=== PATIENT | female | born 1935 | race Caucasian/White ===

== ENCOUNTER 2017-10-07 10:39 | Day surgery (SDC) | payer MEDICARE, SELFPAY ==
[2017-10-07] VITALS (7 sets, daily range): BP systolic 141–163; BP diastolic 71–82; PULSE 65–76; RESP 18; TEMP 36.4–36.7; O2SAT 94–95; BMI 35.6
--- NOTE | 2017-10-07 | COLBX_PTH ---
PATIENT: LIBIA ANTON LOC: EN U#:[id number] AGE/SX: 82/F ROOM: RE10/07/[address]: Dr. Lala Deutsch MD : 1935 BED: DIS: 10/07/2017 SPEC #: [id number] RECD: 10/07/17 14:18 STATUS: AMANUEL HERNANDEZ #: [id number] AMY: 10/07/17 00:[address]: Lala Deutsch DEPT: SURGICAL PATHOLOGY RECD BY: Merrill Mack ENTERED: 10/07/17 14:18 SP TYPE: COLON BX OTHR DR: Dr. Ra Knight MD Tissues: Right colon Procedures: Surgery Specimen Level IV HEADER OPERATION: Colonoscopy PRE-OP DIAGNOSIS: Screening, personal history colonic polyps TISSUE SUBMITTED: Right colon polyp MICROSCOPIC DIAGNOSIS Right colon polyp, biopsy: Fragments of colonic mucosa with cautery artifacts, no pathologic diagnosis. Fragments of fecal material. SJ:isabella 10/08/17 MICROSCOPIC DESCRIPTION Slides are reviewed. GROSS DESCRIPTION Received in fixative is one container labeled with the patient's name and designated right colon polyp. The specimen consists of multiple irregular fragments of light rios soft tissue that in aggregate measure 0.6 x 0.2 x 0.1 cm. The specimen is totally submitted in one cassette. / SJ:rg 10/07/17 TC:4 CPT: 22965
--- NOTE | 2017-10-08 12:42 | PCM.OPRPT ---
Report of Operation Date of Procedure: 10/07/17 Pre-Operative Diagnosis: screening for colon cancer Post-Operative Diagnosis: same, right colon polyp Surgery/Procedure Performed:: colonoscopy with polypectomy with snare device Description of Surgical Findings:: right colon polyp, removed completely with hot loop snare device Type of Anesthesia:: MAC Anesthesiologist: Zaynab Del Valle Specimen's removed: right colon polyp Estimated Blood Loss (mL): minimal Fluids Replaced: see anesthesia note Description of Procedure: After informed consent was given, the patient was brought to the endoscopy suite and placed in the supine position. Appropriate time out protocol was followed. Appropriate cardiac, blood pressure, and pulse oximetry monitoring was placed. After stable vital signs were noted, the patient was given intravenous conscious sedation. The patient was then placed in the left lateral decubitis position. The colonoscope was lubricated and carefully inserted into the patients anus. It was then advanced into the rectum, then into the sigmoid colon, then into the left descending colon, past the splenic flexure, into the transverse colon, past the hepatic flexure, then down into the right descending colon and into the cecum. The cecum was identified by: transillumination, confluence of the tenae coli, identification of the ileocecal valve and appendiceal orifice, and external pressure with indentation. There was a small, < 1 cm polypoid lesion noted in the right colon, it was completely removed with a hot snare cautery device. The colonoscope was then slowly retracted back and the entire colonic mucosa was examined. There was no evidence of extrinsic compression and no inflammatory changes were noted. The colon cleansing preparation was adequate, there was still retained fecal material that require lavage and aspiration and time to clear the colon marvin. No intraluminal obstructing lesions, no strictures, and no ulcers were noted. Retroflex view in the rectum revealed no lesions in the rectal vault. The colonoscope was removed intact. Patient tolerated procedure well. RECOMMENDATIONS: pending pathology review, probable surveillance colonoscopy in 5 years - Complications none noted
--- NOTE | 2017-10-08 12:45 | OP.PCM_ITS ---
Report of Operation Date of Procedure: 10/07/17 Pre-Operative Diagnosis: screening for colon cancer Post-Operative Diagnosis: same, right colon polyp Surgery/Procedure Performed:: colonoscopy with polypectomy with snare device Description of Surgical Findings:: right colon polyp, removed completely with hot loop snare device Type of Anesthesia:: MAC Anesthesiologist: Zaynab Del Valle Specimen's removed: right colon polyp Estimated Blood Loss (mL): minimal Fluids Replaced: see anesthesia note Description of Procedure: After informed consent was given, the patient was brought to the endoscopy suite and placed in the supine position. Appropriate time out protocol was followed. Appropriate cardiac, blood pressure, and pulse oximetry monitoring was placed. After stable vital signs were noted, the patient was given intravenous conscious sedation. The patient was then placed in the left lateral decubitis position. The colonoscope was lubricated and carefully inserted into the patient?s anus. It was then advanced into the rectum, then into the sigmoid colon, then into the left descending colon, past the splenic flexure, into the transverse colon, past the hepatic flexure, then down into the right descending colon and into the cecum. The cecum was identified by: transillumination, confluence of the tenae coli, identification of the ileocecal valve and appendiceal orifice, and external pressure with indentation. There was a small, < 1 cm polypoid lesion noted in the right colon , it was completely removed with a hot snare cautery device. The colonoscope was then slowly retracted back and the entire colonic mucosa was examined. There was no evidence of extrinsic compression and no inflammatory changes were noted. The colon cleansing preparation was adequate, there was still retained fecal material that require lavage and aspiration and time to clear the colon marvin. No intraluminal obstructing lesions, no strictures, and no ulcers were noted. Retroflex view in the rectum revealed no lesions in the rectal vault. The colonoscope was removed intact. Patient tolerated procedure well. RECOMMENDATIONS: pending pathology review, probable surveillance colonoscopy in 5 years - Complications none noted
== END 2017-10-07 13:16 | disposition home or self-care (01) ==
LOC: EN 10:41 → AC 10:44
PROVIDERS: Family Provider Internal Medicine; PCP Internal Medicine; Visit Provider Surgery
PROC: 0DJD8ZZ Inspection of Lower Intestinal Tract, Via Natural or Artificial Opening Endoscopic (ICD-10-PCS; CPT 45378; principal; 2017-10-07 11:55)
DX: Z12.11 Encounter for screening for malignant neoplasm of colon (principal); K63.5 Polyp of colon; Z86.010 Personal history of colon polyps; R15.9 Full incontinence of feces; I10 Essential (primary) hypertension; J44.9 Chronic obstructive pulmonary disease, unspecified; E78.00 Pure hypercholesterolemia, unspecified; F41.9 Anxiety disorder, unspecified; K21.9 Gastro-esophageal reflux disease without esophagitis; I34.8 Other nonrheumatic mitral valve disorders; M54.5 Low back pain; E78.2 Mixed hyperlipidemia; M19.90 Unspecified osteoarthritis, unspecified site; E55.9 Vitamin D deficiency, unspecified; Z87.01 Personal history of pneumonia (recurrent); Z79.899 Other long term (current) drug therapy; Z87.891 Personal history of nicotine dependence
CPT/HCPCS: 45385; 88305; J7120

== ENCOUNTER → 2018-02-24 10:10 | Outpatient (CLI) | payer MEDICARE, SELFPAY ==
--- NOTE | 2018-02-24 10:14 | RAD_ITS ---
STUDY: X-RAY - PELVIS AND LEFT HIP REASON FOR EXAM: Female, 82 years old. Left hip pain. TECHNIQUE: Radiological exam, hip, unilateral, with pelvis when performed; 2 or 3 views. COMPARISON: None. FINDINGS: There is a non-specific bowel gas pattern. Normal visualized soft tissue structures. There are atherosclerotic vascular calcifications. Normal bilateral iliac wings, sacroiliac joints and visualized sacrum. Normal bilateral superior and inferior pubic rami. Normal pubic symphysis. Normal bilateral ischial tuberosities. Normal visualized left femoral head. Normal left acetabulum. There is mild articular joint space narrowing of the left hip. RAD/HIP, UNI W/ Pelvis 2-3 Views IMPRESSION: Mild degenerative changes of the left hip. There is no visualized fracture or dislocation. Electronically Signed: Mike Gregg DO at 17:08 EDT Tel [phone], Service support ,
== END ==
PROVIDERS: Family Provider Internal Medicine; PCP Internal Medicine; Visit Provider Nurse Practitioner Family
DX: M16.12 Unilateral primary osteoarthritis, left hip (principal)
CPT/HCPCS: 73502

== ENCOUNTER → 2022-09-18 | Outpatient (CLI) | payer MEDICARE, SELFPAY ==
[2022-09-18] VITALS (12 sets, daily range): BP systolic 113–204; BP diastolic 48–90; PULSE 52–73; RESP 8–22; TEMP 36.1; O2SAT 90–100; BMI 34.9
[2022-09-18 08:54] LABS: Absolute Lymphocyte Count 1.04 X10^3/uL (0.83-4.51); Absolute Neutrophil Count 4.7 X10^3/uL (2.0-7.7); Basophil# 0.05 X10^3/uL; Basophil% 0.8 % (0-1); Eosinophil# 0.22 X10^3/uL; Eosinophils% 3.4 % (0-5); Hematocrit 36.6 % (37-47); Hemoglobin 11.8 g/dL (12.0-15.0); Lymphocyte # 1.04 X10^3/ul (0.83-4.51); Lymphocyte % 15.9 % (19-41); Mean Corp Hgb Conc 32.2 g/dL (32-36); Mean Corpuscular Volume 89.9 fL (81-99); Monocyte# 0.55 X10^3/uL; Monocyte% 8.4 % (0-10); NRBC Flagged by Analyzer 0 % (0-5); Neutrophil # 4.66 X10^3/uL (2.7-7.7); Neutrophil % 71.3 % (47-70); Platelet Count 163 K/mm3 (150-450); RBC Distribution Width CV 14.3 % (11.6-14.6); RBC Distribution Width SD 46.7 fl (35.1-43.9); Red Blood Count 4.07 M/mm3 (4.2-5.4); White Blood Count 6.5 K/mm3 (4.4-11.0)
--- NOTE | 2022-09-18 08:54 | CT_ITS ---
PROCEDURE: CT GUIDED CORE NEEDLE BIOPSY OF A right upper lobe LUNG LESION INDICATION: Female, 87 years old. Right upper lobe nodule. PHYSICIAN: Dr. Dahlia Navarro CONSENT: Written informed consent was obtained having explained the risks, benefits and alternatives in detail with the patient who accepted the risks and agreed to proceed. Laboratory review and clinical assessment was performed. CONSCIOUS SEDATION PROTOCOL: The Drugs used were: 2 mg Versed, IV., and 50 mcg Fentanyl, IV. The sedation time was: 22 minutes. Conscious sedation was started at 10:23 AM and terminated at 10:45 AM. The conscious sedation protocol was independently monitored. RADIATION DOSAGE (If Supplied By Facility): CTDIvol = ( 14.5 ) mGy, DLP = ( 261.95 ) mGycm Individualized dose optimization techniques were used for this CT. TECHNIQUE: The patient was placed in the supine position. A noncontrast CT was performed to localize the lesion in the right upper lobe . The skin surface was prepped and draped in a sterile fashion. 1% lidocaine was used for local anesthesia. Using CT guidance, a 20-gauge coaxial biopsy device was advanced to the periphery of the lesion. A total of 3 core specimens were obtained. The specimens were placed in a formalin solution. A post procedure CT demonstrated no adverse sequelae or pneumothorax. The patient tolerated the procedure well without adverse event. A negative biopsy does not exclude malignancy. Further imaging or clinical followup based on patient condition and degree of clinical suspicion for malignancy. Suggest rebiopsy, if biopsy results do not match with clinical scenario. CT/Biopsy/Inj or Needle Placement IMPRESSION: 1. CT directed core needle biopsy of the right upper lobe pulmonary nodule using CT image guidance with image documentation as described. Pathology results are pending. 2. Conscious Sedation protocol utilized with independent monitoring. Electronically Signed: Vahe Villagomez MD at 11:13 EDT ,
[2022-09-18 09:18] LABS: Prothrombin Time (Protime)PT. 13.2 SECONDS (11.7-14.9)
[2022-09-18] MEDS: Midazolam 2 MG/2 ML Syringe IV (10:23)
[2022-09-18] MEDS: fentaNYL 100 MCG/2 ML Ampul IV (10:25)
--- NOTE | 2022-09-18 10:51 | RAD_ITS ---
STUDY: X-RAY CHEST REASON FOR EXAM: Female, 87 years old. Pneumothorax -- Immediately post lung biopsy TECHNIQUE: AP inspiration and expiration views. COMPARISON: None. FINDINGS: Immediate post right lung biopsy radiographs. There is no evidence of pneumothorax. RAD/Chest Insp/Exp 2 View IMPRESSION: No evidence of pneumothorax on the immediate post right lung biopsy radiographs. Electronically Signed: Vahe Villagomez MD at 11:10 EDT ,
[2022-09-18] MEDS: Lidocaine 2% (20 ml mdv) 20 ML Vial INFILT (11:38)
--- NOTE | 2022-09-18 12:45 | RAD_ITS ---
STUDY: X-RAY CHEST REASON FOR EXAM: Female, 87 years old. Pneumothorax -- 2 hours post lung biopsy TECHNIQUE: AP inspiration and expiration views. COMPARISON: Comparison is made with prior study done earlier in the day. FINDINGS: No evidence of pneumothorax on the 2 hour post right lung radiographs. RAD/Chest Insp/Exp 2 View IMPRESSION: No evidence of pneumothorax on the 2 hour post right lung biopsy radiographs. Electronically Signed: Vahe Villagomez MD at 14:38 EDT ,
== END | disposition home or self-care (01) ==
PROVIDERS: PCP Internal Medicine
DX: C34.11 Malignant neoplasm of upper lobe, right bronchus or lung (principal); R06.02 Shortness of breath
CPT/HCPCS: 32408; 36415; 71046; 77012; 85025; 85610; 88172; 88305; 88313; 88341; 88342; 99156; J7050; A4216

== ENCOUNTER → 2022-09-25 | Outpatient (CLI) | payer MEDICARE, SELFPAY ==
--- NOTE | 2022-09-25 11:30 | PET_ITS ---
EXAMINATION: FDG PET/CT ? INDICATIONS: 87-year-old female with a history of pulmonary nodularity. ? COMPARISON EXAMINATION: None available ? INDEX LESION SIZE SUV INTERPRETATION Right upper lung field, right upper lobe 20.7 mm 8.0 Fulfills quantitative criteria for viable neoplasm, histopathologic analysis recommended ? TECHNIQUE: Following the intravenous administration of 13.64 mCi of F-18 deoxyglucose via the left wrist, multiplanar image acquisitions of the head, neck, chest, abdomen and pelvis to the level of the midthigh, obtained at one-hour post radiopharmaceutical administration contemporaneously interpreted with the current CT of the head, neck, chest, abdomen and pelvis dated via coregistration reveal: ? SERUM GLUCOSE LEVEL:? 112 mg/dL? HEIGHT:?? 68 inches WEIGHT:?? 233 pounds ? FINDINGS: ? HEAD/NECK:? There is no evidence of abnormal increased glucose metabolism in the pharyngeal mucosal space, parapharyngeal space, oropharynx, bilateral-lateral and anterior neck, hypopharynx and distribution of the larynx. ? The visualized portion of the cerebral cortical-subcortical structures demonstrate symmetric and preserved glucose metabolism. ? CHEST: Increased FDG concentration is noted in the right upper lung field, right upper lobe, generating a calculated maximum standard uptake value of 8.0. The maximum axial diameter of the metabolic, morphologic abnormality is 20.7 mm. ? CT of the chest demonstrates the following anatomic characteristics: Atherosclerotic calcification is defined in the thoracic aorta without evidence of dilatation, aneurysm formation. Coronary arterial calcification is observed. Subcentimeter bilateral axillary soft tissue densities are ametabolic. Scattered mediastinal soft tissue reveals no evidence of increased FDG uptake. Pulmonary parenchymal change defined in the left upper lung zone is nonglucose avid. ? ABDOMEN/PELVIS:? Normal physiologic distribution of the radiopharmaceutical is identified in the hepatic (5.1) and splenic parenchyma, both renal units, urinary bladder, and visualized intestinal tract. ? CT of the abdomen and pelvis is remarkable for the following: Calcified granuloma formation is noted in the hepatic and splenic parenchyma. Calcification is defined in the bilateral lower hemipelvis. The uterus is surgically absent. Right and left inguinal soft tissue densities are ametabolic. ? SKELETAL: Degenerative changes defined in the thoracic and lumbar spine demonstrate no evidence of increased glucose metabolism. There are no sclerotic, mixed sclerotic-lytic, or primarily lytic changes defined in the axial skeletal structures with evidence of increased FDG uptake. ? PET/PET/CT Tumor Base -Thigh Init IMPRESSION: 1. The increase in radiopharmaceutical concentration defined in the right upper lung zone, right upper lobe, fulfills quantitative criteria for viable neoplasm with single-point technique. Histopathologic analysis is recommended. 2. No other quantitatively significant hypermetabolic abnormalities are noted. Electronic Signature Hipolito Gomez D.O. Accurate Quantification of SUVs for this report are calculated using the exclusive [employer]. ([place]. Patent No. [phone] B2 [phone] [place] patent [phone]). Standardization and correction of the FDG SUV metric via [employer] technology allow for vendor non-specific objective quantitative examination comparison and optimization of the sensitivity and specificity of the FDG PET-CT examination. . Electronically Signed: Hipolito Gomez, at 7:47 EDT ,
== END | disposition home or self-care (01) ==
PROVIDERS: PCP Internal Medicine
DX: R91.1 Solitary pulmonary nodule (principal)
CPT/HCPCS: 78815; A9552

== ENCOUNTER → 2022-11-12 | Outpatient (CLI) | payer MEDICARE, SELFPAY ==
[2022-11-12 11:18] LABS: Hematocrit 38.8 % (37-47); Hemoglobin 12.3 g/dL (12.0-15.0); Mean Corp Hgb Conc 31.7 g/dL (32-36); Mean Corpuscular Hgb 28.6 pg (27.0-32.0); Mean Corpuscular Volume 90.2 fL (81-99); Mean Platelet Vol. 10.2 fl (6.2-12.0); Platelet Count 164 K/mm3 (150-450); RBC Distribution Width CV 14.5 % (11.6-14.6); RBC Distribution Width SD 48.4 fl (35.1-43.9)
[2022-11-12 11:34] LABS: Partial Thromboplast Time 25.1 Seconds (24.1-36.2); Prothrombin Time (Protime)PT. 13.2 SECONDS (11.7-14.9)
== END | disposition home or self-care (01) ==
LOC: PAVLAB 10:29
PROVIDERS: PCP Internal Medicine; Referring Provider Internal Medicine Critical Care Medicine; Visit Provider Internal Medicine Critical Care Medicine
DX: Z01.812 Encounter for preprocedural laboratory examination (principal); E78.5 Hyperlipidemia, unspecified
CPT/HCPCS: 36415; 85027; 85610; 85730

== ENCOUNTER 2022-11-23 10:44 | Day surgery (SDC) | payer MEDICARE, SELFPAY ==
[2022-11-23] VITALS (7 sets, daily range): BP systolic 110–150; BP diastolic 44–67; PULSE 53–61; RESP 16; TEMP 36–37.1; O2SAT 92–98; BMI 35.0
--- NOTE | 2022-11-23 | IMM_PTH ---
PATIENT: LIBIA ANTON LOC: EN U#:[id number] AGE/SX: 87/F ROOM: RE11/23/[address]: Dr. Jaya Rivers MD : 1935 BED: DIS: 11/23/2022 SPEC #: [id number] RECD: 11/26/22 13:32 STATUS: AMANUEL REQ #: [id number] AMY: 11/23/22 00:[address]: Jaya Rivers DEPT: IMMUNOHISTOCHEMISTRY RECD BY: Vidya Melendez ENTERED: 11/26/22 13:34 SP TYPE: IMMUNO OTHR DR: Dr. 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 Localization is made via biotin free immunoperoxidase method. Appropriate controls are performed and reacted as expected. Results on target cell population are indicated in the following table: RESULTS: ANTIBODY / CLONE RESULT Block I CD3 (PS1) positive CD5 (SP10) positive CD20 (L26) positive CD23 (1B12) negative CD45 (RP2/18) positive CD79a (11E3) positive CD138 (B-A38) negative BCL-2 (bcl-2/100/D5) negative Block J CD3 (PS1) positive CD5 (SP10) positive CD20 (L26) positive CD23 (1B12) negative CD45 (RP2/18) positive CD79a (11E3) negative CD138 (B-A38) negative BCL-2 (bcl-2/100/D5) negative These tests were developed and their performance characteristics determined by [facility]. They may not have been cleared or approved by the U.S. Food and Drug Administration. The FDA has determined that such clearance or approval is not necessary. The above immunohistochemical/dualISH markers are ordered and reviewed by the Pathologist. INTERPRETATION: Starla. FAHEEM MARCIAL, site 10R (cell block): Polytypic lymphoid cells. See comment. FAHEEM RAE, site 11R (cell block): Polytypic lymphoid cells. See comment. AM:isabella 11/27/2022 Comment: There is no evidence of lymphoproliferative disorder.
[2022-11-23] MEDS: Lactated Ringers 1,000 ML 15 ML IV ×2 (11:10→13:00)
--- NOTE | 2022-11-23 11:22 | HP.PCM_ITS ---
History and Physical Date of Admission: 11/23/22 Patient seen and examined prior to the operative procedure. Patient was with her . There was no significant change from the note below. She continues to want to proceed with an EBUS. All questions have been answered and consent was signed. Reasons to come back following the procedure were reviewed. 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 Patient has had a 3-month delay since her stage I diagnosis and I agree that mediastinal sampling is likely indicated.? Did discuss resection as an option and patient understands that EBUS would not be indicated unless she were to decide to do SBRT.? After review the risks, benefits and alternatives, patient has agreed to proceed with an EBUS.? This is tentatively scheduled for November 23 at 12 PM.? We will obtain preop labs.? All questions were answered.? Patient did request that the results be sent to the Dr. Julia Wheeler directly so that she would not have duplicate appointments with pulmonologists. Proceed with EBUS as planned. ? ? ? Orders: Orders Bronchoscopy Today C34.11 - Malignant neoplasm of upper lobe, right bronchus or lung ? Partial Thromboplast Time Today Z01.812 - Encounter for preprocedural laboratory examination ? CBC-Complete Blood Cnt No Diff Today E78.5 - Hyperlipidemia, unspecified ? Prothrombin Time w/INR Today Z01.812 - Encounter for preprocedural laboratory examination ? Medications: Changed From albuterol sulfate 90 mcg/actuation (Ventolin HFA) 1 puff? inhalation Q6H PRN PRN #1 0RF Shortness Of Breath ? ? To albuterol sulfate 90 mcg/actuation (Ventolin HFA) 2 puffs? inhalation Q4H PRN Shortness Of Breath ? ? From lorazepam 0.5 mg? PO TID PRN PRN 30 TABLETS 0RF An xiety ? ? To lorazepam 0.5 mg? PO QHS PRN Anxiety ? ? Plan Details Follow Up: ? ? Following bronchoscopy (With Dr. Julia Wheeler) HPI HAKAN FOR EBUS Details: Patient is an 87-year-old female, currently under care of Dr. Knight and Dr. Julia Wheeler, who presents for evaluation secondary to a need for possible EBUS. Patient states that earlier this year she was diagnosed with squamous cell lung cancer following a CT-guided biopsy.? Patient states she has not been seen by oncology, but was offered SBRT versus lobectomy.? Patient is interested in SBRT, so an EBUS is being recommended.? Patient would like not to go to [place] for her procedure, so presents for an evaluation in our office. Patient does give a long smoking history, but quit sometime ago.? Patient states her lung nodule was found incidentally in late July, early August.? Patient states that she has not had any change in symptoms.? Patient is not reporting any chest pain, abdominal pain, nausea or vomiting.? Patient has no hemoptysis, fever or chills.? Patient does report that she uses Advair on a regular basis.? Patient denies any complication such as thrush, hoarseness or sore throat.? Patient also has Flonase and has had some seasonal allergies recently.? Patient rarely requires albuterol. Patient is not reporting any palpitations or lower extremity edema.? Patient lives at home independently with her .? Patient did present with her husb and and they had several questions about the role of EBUS/SBRT and surgery.? Patient felt that a negative PET scan should be sufficient.? Patient does have PFTs showing that she could tolerate a resection. Review of systems otherwise negative from a constitutional, HEENT, respiratory, cardiovascular, GI, genitourinary, musculoskeletal, skin, neurologic, psychiatric and hematologic system unless stated above. Documentation reviewed prior to the office visit Patient reportedly has been seen by Dr. Julia Wheeler and diagnosed with a clinical stage I non-small cell, favoring squamous cell differentiation.? Previous imaging had shown a 2.2 x 2 cm highly suspicious nodule in the right upper lobe and some mild fullness in the right hilar region.? PET scan showed a hypermetabolic lesion in the right upper lobe with no other suspicious hypermetabolic lesions.? PFTs reportedly had an FEV1 of 80% and a DLCO of 75%.? Patient ultimately was biopsied and confirmed squamous cell cancer.? There is some question about wanting to have SBRT versus surgical resection.? Patient reportedly is trying to decide between SBRT and surgical resection Intake Vital Signs ? 09/18/2308:28 11/12/2306:26 Height 5 ft 8 in 5 ft 8 in Weight: ? 104.326 kg BMI ? 34.9 BP ? 158/77 H Blood Pressure Location ? Lt brachial Position ? Sitting Respiration ? 16 Pulse ? 59 L Pulse Source ? Monitor Temp ? 36.4 C L Temperature Source ? Temporal Artery Pulse Oximetry (%) ? 96 Oxygen Delivery Method ? room air Intake Visit Reasons:?EVAL FOR EBUS Accompanied by: Is patient in pain?: No Allergies bacitracin Allergy (Verified 11/09/22 12:33) Rashneomycin Allergy (Verified 11/09/22 12:33) Rashhydroxyzine Adverse Reaction (Verified 09/17/22 14:25) Unknownlovastatin Adverse Reaction (Verified 11/09/22 12:33) Othernaproxen sodium [From Anaprox] Adverse Reaction (Verified 11/09/22 12:33) UnknownSulfa (Sulfonamide Antibiotics) Adverse Reaction (Verified 09/17/22 14:25) Unknowntrimethoprim Adverse Reaction (Verified 09/17/22 14:25) Unknown Medications pravastatin 10 mg tablet 40 mg PO DAILY 09/02/15 [History Confirmed 11/09/22] Vitamin D3 2,000 units PO DAILY ##30 09/20/15 [Rx Confirmed 11/09/22] amlodipine 5 mg tablet 5 mg PO DAILY 09/17/22 [History Confirmed 11/09/22] albuterol sulfate 2.5 mg/3 mL (0.083 %) solution for nebulization 2.5 mg inhalation Q6H PRN wheezing/ sob 11/09/22 [History Confirmed 11/09/22] albuterol sulfate 90 mcg/actuation aerosol inhaler (Ventolin HFA) 2 puff inhalation Q4H PRN Shortness Of Breath 11/09/22 [History Confirmed 11/12/22] biotin 800 mcg tablet 800 mcg PO DAILY 11/09/22 [History Confirmed 11/09/22] fluticasone propionate 115 mcg-salmeterol 21 mcg/actuation HFA inhaler (Advair HFA) 2 puff inhalation BID 11/09/22 [History Confirmed 11/09/22] fluticasone propionate 50 mcg/actuation nasal spray,suspension 2 spray intranasal DAILY 11/09/22 [History Confirmed 11/09/22] lorazepam 0.5 mg tablet 0.5 mg PO QHS PRN Anxiety 11/09/22 [History Confirmed 11/12/22] omega-3 300 mg-dha 100 mg-epa 150 mg-fish oil 1,000 mg capsule 1 cap PO DAILY 11/09/22 [History Confirmed 11/09/22] PFSH Medical History? CKD (chronic kidney disease) stage 3, GFR 30-59 ml/min COPD (chronic obstructive pulmonary disease) COPD (chronic obstructive pulmonary disease) with chronic bronchitis Depressive disorder, not elsewhere classified Environmental allergies Hiatal hernia High cholesterol Hypercholesteremia Internal hemorrhoids without mention of complication Low back pain Mitral valve disorder Multiple thyroid nodules Non-small cell cancer of right lung Obesity, Class II, BMI 35-39.9 Osteoarthritis Other specified gastritis without mention of hemorrhage Personal history of colonic polyps Pneumonia Vitamin D deficiency Surgical History? History of hysterectomy Total knee replacement status Family History? Mother Heart disease ?? ? age 92Father Heart disease ?? ? ASHDSister Heart diseaseBrother CAD (coronary artery disease) ?? ? stentedSon Heart diseaseGrandfather Cancer ?? ? throatGrandmother Cancer ?? ? uterine Social History?(Updated 11/09/22 @ 12:47 by Yas Montanez) Smoking Status:? Former smoker Tobacco: How many years used:? 35 Electronic Cigarette Use:? not used smoking status stop date:? 03/01/92 second hand exposure:? Yes alcohol intake:? never substance use type:? does not use Exam Const Constitutional: Positive conversant, cooperative, in no acute respiratory distress, healthy appearing, well developed, well nourished, good hygiene and obese; Negative ill appearing Head Head: Yes normocephalic, Yes atraumatic and No cyanosis of lips/distal nose Eyes Eye: Positive clear conjunctiva; Negative nystagmus, scleral abnormality or cataract present Ears Ear: Positive hearing normal and external ears normal; Negative hard of hearing Nose Nose: Yes external nose normal, No nasal polyp and Yes septum normal Mouth Mouth: Positive oral mucosae normal, no lesions and crowded posterior oropharynx; Negative oral thrush present or post nasal drip Mallampati Score: III: Mallampati Score Neck Neck: Positive normal visual inspection, full ROM, trachea midline and female neck greater than 37 cm (15 in); Negative lymphadenopathy or JVD Chest Wall Chest: Positive normal inspection of the chest and symmetric chest movement; Negative crepitus or tenderness Resp lung sounds: Positive clear to auscultation, good air exchange and normal ex piratory time; Negative wheezes, wheeze present on forced exhalation, rhonchi, rales, dullness or use of accessory muscles Cardio Cardiac: Positive regular rate, regular rhythm, S1 normal and S2 normal; Negative murmur, rub or gallop GI GI: Positive normal to inspection, normal bowel sounds and obese; Negative distended, ascites or epigastric tenderness Musc Musculoskeletal: Positive steady gait; Negative using an assistive device for ambulation, kyphosis or scoliosis Skin Pulmonary Skin Exam: Positive intact; Negative lesion, rash, ulcers or erythema Pulses Pulse: Yes radial pulses present Extremities Extremities: Yes capillary refill normal, No clubbing, No cyanosis and No edema Neuro Neurologic: Yes no focal neuro deficits, Yes conversant, Yes cooperative, Yes normal cognition, Yes normal coordination, Yes normal concentration and Yes understands questions Lymph Lymphatic: No lymphadenopathy Psych Appearance: Positive grossly normal Mental Status: Positive mental status grossly normal Mood: Positive congruent mood Affect: Positive normal affect Assessment & Plan Assessment/Plan (1) 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 Anticipate biopsies in the 10R and possibly 11R stations.
--- NOTE | 2022-11-23 12:00 | ASPIG_PTH ---
PATIENT: LIBIA ANTON LOC: EN U#:[id number] AGE/SX: 87/F ROOM: RE11/23/[address]: Dr. Jaya Rivers MD : 1935 BED: DIS: 11/23/2022 SPEC #: [id number] RECD: 11/23/22 13:32 STATUS: AMANUEL MARY #: [id number] AMY: 11/23/22 12:[address]: Jaya Rivers DEPT: CYTOLOGY RECD BY: Noa Tubbs ENTERED: 11/23/22 13:34 SP TYPE: ASP OUT OTHR DR: Dr. 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 EBUS, TBNA, site 7 #1: Blood. No evidence of malignancy. B. EBUS, TBNA, site 7 #2: Lymphocytes present. Occasional bronchial epithelial cells. No evidence of carcinoma. C. EBUS, TBNA, site 7 #3: Blood and lymphocytes present. No evidence of carcinoma. D. EBUS, TBNA, site 10R #4: Lymphocytes, blood and bronchial epithelial cells. No evidence of carcinoma. E. EBUS, TBNA, site 10R #5: Blood. Rare lymphocytes and bronchial epithelial cells. No evidence of carcinoma. F. EBUS, TBNA, site 11R #6: Blood and lymphocytes. Bronchial epithelial cells. No evidence of carcinoma. G. EBUS, TBNA, site 11R #7: Blood and bronchial epithelial cells. No evidence of malignancy. H. EBUS, TBNA, site 7 (cell block): Polytypic lymphocytes are present. I. EBUS, TBNA, site 10R (cell block): Polytypic lymphocytes are present. See comment. J. EBUS, TBNA, site 11R (cell block): Polytypic lymphocytes are present. See comment. AM:isabella 11/26/2022 COMMENT The specimen is evaluated at the time of procedure by Dr. Sawant. Rapid On-Site Evaluation: A. EBUS, TBNA, site 7 #1: Blood. No evidence of malignancy. B. EBUS, TBNA, site 7 #2: Lymphocytes present. Occasional bronchial epithelial cells. No evidence of carcinoma. C. EBUS, TBNA, site 7 #3: Blood and lymphocytes present. No evidence of carcinoma. D. EBUS, TBNA, site 10R #4: Lymphocytes, blood and bronchial epithelial cells. No evidence of carcinoma. E. EBUS, TBNA, site 10R #5: Blood. Rare lymphocytes and bronchial epithelial cells. No evidence of carcinoma. F. EBUS, TBNA, site 11R #6: Blood and lymphocytes. Bronchial epithelial cells. No evidence of carcinoma. G. EBUS, TBNA, site 11R #7: Blood and bronchial epithelial cells. No evidence of malignancy. I & J. Immunohistochemistry ([id number]) supports the above diagnosis. CYTOLOGY STUDY Slides are reviewed. CYTOLOGY GROSS A - Received labeled with the patient's name and and designated EBUS, TBNA, site 7 #1. The specimen consists of two stained smears for TEJAL (Rapid On-Site Evaluation). B - Received labeled with the patient's name and and designated EBUS, TBNA, site 7 #2. The specimen consists of two stained smears for TEJAL. C - Received labeled with the patient's name and and designated EBUS, TBNA, site 7 #3. The specimen consists of two stained smears for TEJAL. D - Received labeled with the patient's name and and designated EBUS, TBNA, site 10R #4. The specimen consists of two stained smears for TEJAL. E - Received labeled with the patient's name and and designated EBUS, TBNA, site 10R #5. The specimen consists of two stained smears for TEJAL. F - Received labeled with the patient's name and and designated EBUS, TBNA, site 11R #6. The specimen consists of two stained smears for TEJAL. G - Received labeled with the patient's name and and designated EBUS, TBNA, site 11R #7. The specimen consists of two stained smears for TEJAL. H - Received in RPMI is 35 ml of red cloudy, needle rinsed fluid labeled with the patient's name and and designated EBUS, TBNA, site 7. The specimen is submitted for cell block preparation. I - Received in RPMI is 35 ml of red cloudy, needle rinsed fluid labeled with the patient's name and and designated EBUS, TBNA, site 10R. The specimen is submitted for cell block preparation. J - Received in RPMI is 30.5 ml of red cloudy, needle rinsed fluid labeled with the patient's name and and designated EBUS, TBNA, site 11R. The specimen is submitted for cell block preparation. AM:isabella 11/23/2022 TC:5 CPT: 91533 x3, 18858 x4, 37597 x2
--- NOTE | 2022-11-23 14:06 | OP.BRONCH_ITS ---
Patient Name: Dolores Oscar Procedure Date: 11/23/2022 10:55 AM Date of : 1935 Age: 87 Procedure: Bronchoscopy Indications: Known lung cancer of the right upper lobe Providers: Jaya Rivers MD Referring MD: Jaya Rivers MD Medicines: See the Anesthesia note for documentation of the administered medications Complications: No immediate complications Procedure: Pre-Anesthesia Assessment: - A History and Physical has been performed. The patient's medications, allergies and sensitivities have been reviewed. - The risks and benefits of the procedure and the sedation options and risks were discussed with the patient. All questions were answered and informed consent was obtained. - Patient identification and proposed procedure were verified prior to the procedure by the physician, the nurse and the grocery department manager. The procedure was verified in the procedure room. - ASA Grade Assessment: II - A patient with mild systemic disease. After I obtained informed consent, the scope was passed under direct vision. Throughout the procedure, the patient's blood pressure, pulse, and oxygen saturations were monitored continuously. The ultrasound bronchoscope was introduced through the mouth, via laryngeal mask airway and advanced to the tracheobronchial tree. The bronchoscope was introduced through the mouth, via laryngeal mask airway and advanced to the tracheobronchial tree. The procedure was accomplished without difficulty. The patient tolerated the procedure well. 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 Partially obstructing (about 80% obstructed) dynamic collapse was found throughout the entire tracheobronchial tree. The scope was withdrawn and replaced with the EBUS bronchoscope to accomplish the ultrasound examination. Lymph Nodes: An endobronchial ultrasound endoscope was utilized to systematically examine the subcarinal mediastinum (level 7), right hilar region (level 10R) and right superior interlobar region (level 11Rs) in order to assist with fine needle aspiration. Lymph node sizing was performed via endobronchial ultrasound for known non-small cell lung cancer of the RUL. Sampling by transbronchial needle aspiration was also performed using an Olympus EBUS-TBNA 21 gauge needle in the subcarinal mediastinum (level 7), right hilar region (level 10R) and right superior interlobar region (level 11Rs) and sent for routine cytology. - The 7 (subcarinal) node was 18 mm by EBUS. Three samples with the needle were obtained. - The 10R (hilar) node was 11 mm by EBUS. Two samples with the needle were obtained. - The 11Rs (superior interlobar) node was 10 mm by EBUS. Two samples with the needle were obtained. Lymph Nodes: A PET scan was found to be non-hypermetabolic in the subcarinal mediastinum (level 7), right hilar region (level 10R) and right superior interlobar region (level 11Rs) nodes. RUL lesion was highly avid and was biosied by CT guidance prior to this procedure Lymph Nodes: Rapid On-Site Evaluation (TEJAL): Preliminary cytology was suggestive of benign-appearing lymphoid tissue (final results are pending) in the subcarinal mediastinum (level 7), right hilar region (level 10R) and the right superior interlobar region (level 11Rs). No malignant cells were noted. 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 - Dynamic collapse was found throughout the tracheobronchial tree. - Endobronchial ultrasound was performed. - Lymph node sizing and sampling was performed. Tissue was obtained from this exam. The preliminary diagnosis is consistent with malignancy. - Rapid On-Site Evaluation (TEJAL): Preliminary cytology was suggestive of benign-appearing lymphoid tissue in node level 7, the cellularity of the specimen was adequate in node level 10R, and of benign-appearing lymphoid tissue in node level 11Rs (final results are pending). Recommendation: - The patient will be observed post-procedure, until all discharge criteria are met. - Await cytology results. - Patient has a contact number available for emergencies. The signs and symptoms of potential delayed complications were discussed with the patient. Return to normal activities tomorrow. Written discharge instructions were provided to the patient. - Follow up with referring physician in 1 week. - The patient was advised to call or return to the clinic if there are signs or symptoms suggesting a complication/adverse reaction from the procedure. Procedure Code(s): --- Professional --- 13585, Bronchoscopy, rigid or flexible, including fluoroscopic guidance, when performed; with endobronchial ultrasound (EBUS) guided transtracheal and/or transbronchial sampling (eg, aspiration[s]/biopsy[ies]), 3 or more mediastinal and/or hilar lymph node stations or structures 71959, Bronchoscopy, rigid or flexible, including fluoroscopic guidance, when performed; with transendoscopic endobronchial ultrasound (EBUS) during bronchoscopic diagnostic or therapeutic intervention(s) for peripheral lesion(s) (List separately in addition to code for primary procedure[s]) Diagnosis Code(s): --- Professional --- C34.11, Malignant neoplasm of upper lobe, right bronchus or lung J98.09, Other diseases of bronchus, not elsewhere classified R09.89, Other specified symptoms and signs involving the circulatory and respiratory systems CPT copyright 2017 [employer]. All rights reserved. The codes documented in this report are preliminary and upon metalsmith apprentice review may be revised to meet current compliance requirements. MD Jaya Godinez MD 11/23/2022 2:05:27 PM This report has been signed electronically. Number of Addenda: 0 Note Initiated On: 11/23/2022 10:55 AM
== END 2022-11-23 14:17 | disposition home or self-care (01) ==
LOC: EN 10:45 → AC 10:46
PROVIDERS: PCP Internal Medicine; Referring Provider Internal Medicine Critical Care Medicine; Visit Provider Internal Medicine Critical Care Medicine
PROC: BB4BZZZ Ultrasonography of Pleura (ICD-10-PCS; CPT 31653; principal; 2022-11-23 11:30)
DX: C34.11 Malignant neoplasm of upper lobe, right bronchus or lung (principal); J44.9 Chronic obstructive pulmonary disease, unspecified; N18.30 Chronic kidney disease, stage 3 unspecified; J98.09 Other diseases of bronchus, not elsewhere classified; R09.89 Other specified symptoms and signs involving the circulatory and respiratory systems; E78.5 Hyperlipidemia, unspecified; E66.9 Obesity, unspecified; E55.9 Vitamin D deficiency, unspecified; I12.9 Hypertensive chronic kidney disease with stage 1 through stage 4 chronic kidney disease, or unspecified chronic kidney disease; Z87.891 Personal history of nicotine dependence; Z68.35 Body mass index [BMI] 35.0-35.9, adult
CPT/HCPCS: 31653; 31654; 88161; 88172; 88305; 88313; 88341; 88342; J7120; J2405

== ENCOUNTER 2023-11-11 15:30 | Emergency (ER) | payer MEDICARE, SELFPAY ==
[2023-11-11 15:32] VITALS: BP 158/71; PULSE 51; RESP 16; TEMP 36.8; O2SAT 97; BMI 34.9
--- NOTE | 2023-11-11 16:32 | EKG12_ITS ---
Test Reason : Blood Pressure : / mmHG Vent. Rate : 048 BPM Atrial Rate : 048 BPM P-R Int : 176 ms QRS Dur : 090 ms QT Int : 466 ms P-R-T Axes : 067 060 045 degrees QTc Int : 416 ms Sinus bradycardia Otherwise normal ECG Confirmed by INO ENCARNACION, EVELYN ([id number]), editor & co founder EDILMA GARCIA ([id number]) on 11/12/2023 8:19:00 AM Referred By: ESTRELLITA Confirmed By:EVELYN MCKINNON MD
--- NOTE | 2023-11-11 16:32 | EX.ED.DYSGE1 ---
HPI History of Present Illness Chief Complaint: Hypertension Informant: patient and family Narrative Narrative: 88-year-old female presenting to the emergency room with elevated blood pressure and lower than normal heart rate. Patient states that she took her blood pressure and heart rate with family this morning. She states that her heart rate was noted to be around 39. Blood pressure was noted to be slightly higher than normal. She states she really does not feel any different but has been noticing episodes of dizziness/lightheadedness. She states she does not have a sense of the room spinning but more that her head is not balance. She notes some nausea. No prior syncope. 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 She does not know her medications. In the computer I have amlodipine and losartan as her blood pressure medications. She states that she has been taking some tkrs-kwp-[id number] medications like Dramamine and a D1 vertigo liquid that she puts behind her ear (possibly DiVertigo?). No chest pain shortness of breath. I see some outpatient notes that show her heart rate to be in the 50s. Particularly pulmonology consult from last year as well as endoscopy anesthesia notes. 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 CKD (chronic kidney disease) stage 3, GFR 30-59 ml/min COPD (chronic obstructive pulmonary disease) High cholesterol Home Medications ?Medication ?Instructions ?Recorded ?Last Taken ?Type pravastatin 10 mg tablet 40 mg PO DAILY 09/02/15 Unknown History Vitamin D3 2,000 units PO DAILY ##30 09/20/15 Unknown Rx amlodipine 5 mg tablet 5 mg PO DAILY 09/17/22 11/23/22 History albuterol sulfate 2.5 mg/3 mL 2.5 mg inhalation Q6H PRN 11/09/22 Unknown History (0.083 %) solution for nebulization wheezing/ sob biotin 800 mcg tablet 800 mcg PO DAILY 11/09/22 Unknown History fluticasone propionate 115 2 puff inhalation BID 11/09/22 Unknown History mcg-salmeterol 21 mcg/actuation HFA inhaler (Advair HFA) fluticasone propionate 50 2 spray intranasal DAILY 11/09/22 Unknown History mcg/actuation nasal spray,suspension lorazepam 0.5 mg tablet 0.5 mg PO QHS PRN Anxiety 11/09/22 Unknown History omega-3 300 mg-dha 100 mg-epa 150 1 cap PO DAILY 11/09/22 Unknown History mg-fish oil 1,000 mg capsule losartan 25 mg tablet 25 mg PO DAILY 11/21/22 11/23/22 History Allergy/AdvReac Type Severity Reaction Status Date / Time bacitracin Allergy Rash Verified 11/11/23 15:33 neomycin Allergy Rash Verified 11/11/23 15:33 hydroxyzine AdvReac Unknown Verified 11/11/23 15:33 lovastatin AdvReac Other Verified 11/11/23 15:33 naproxen sodium (From AdvReac Unknown Verified 11/11/23 15:33 Anaprox) Sulfa (Sulfonamide AdvReac Unknown Verified 11/11/23 15:33 Antibiotics) trimethoprim AdvReac Unknown Verified 11/11/23 15:33 Family History Mother Heart disease age 92 Father Heart disease ASHD Sister Heart disease Brother CAD (coronary artery disease) stented Son Heart disease Grandfather Cancer throat Grandmother Cancer uterine Surgical History History of vein stripping History of hysterectomy Total knee replacement status Social History Smoking Status: Former smoker Tobacco: How many years used: 35 Electronic Cigarette Use: not used second hand exposure: Yes alcohol intake: never substance use type: does not use ROS ROS ED Constitutional Constitutional ED: Denies chills, fever(s) or weight loss Eyes Eyes: Denies change in vision or diplopia ENT ENT ED: Denies ear pain, rhinorrhea or sore throat Cardiovascular Cardiovascular: Denies chest pain, orthopnea, palpitations or racing heartbeat Respiratory/Chest Respiratory/Chest: Denies cough, dyspnea or orthopnea Gastrointestinal Gastrointestinal: Reports nausea; Denies abdominal pain, diarrhea or vomiting Genitourinary Genitourinary ED: Denies dysuria, hematuria or urinary frequency Musculoskeletal Musculoskeletal: Denies arthralgias or myalgias Integumentary Denies abscess or rash Neurologic Neurologic: Reports other Details: Vertigo versus lightheadedness ; Denies headache(s), paresthesias or weakness Psychiatric Psychiatric: Denies anxiety, depression, suicidal ideation or suicidal thoughts Endocrine Endocrinology: Denies polydipsia, polyphagia or polyuria Allergic/Immunologic Allergic/Immunologic ED: Denies mouth swelling, tongue swelling or urticaria EXAM Physical Exam Const Vital Signs: 11/11/23 15:32 11/11/23 15:47 Temperature 98.2 F Temperature Source Temporal Pulse Rate 51 L Respiratory Rate 16 Respiratory Effort Normal Non-Labored Blood Pressure 158/71 H Blood Pressure Mean 100 Pulse Ox 97 Oxygen Delivery Method Room Air Positive well nourished and well developed General Appearance ED: well developed HEENT Reports normocephalic, head/scalp atraumatic and moist mucous membranes Eyes PERRL and EOMs intact bilaterally Neck no lymphadenopathy, supple and no JVD Resp normal respiratory effort and clear to auscultation bilaterally Cardio regular rate, regular rhythm and no murmurs GI normal to inspection, nondistended, normoactive bowel sounds and non-tender Palpation: soft Back/Spine no CVA tenderness and normal ROM Extremity normal to inspection General Extremety ED: Negative for edema General Extremity: Negative for edema Neuro oriented x3 and CN's II-XII intact bilaterally Sensorium / Orientation: alert Motor Exam: strength 5/5 throughout Psych mental status grossly normal Mood & Affect: Negative for depressed or tearful Skin no rashes or lesions noted and no wounds MDM MDM MDM Narrative Medical decision making narrative: Differential diagnosis includes but not limited to electrolyte abnormality ACS, pathologic bradycardia sinus bradycardia vertigo vasovagal near syncope Plan and interpretation of the chest x-ray is chronic scar of the right upper lung. She is followed by Dr. Magana from Radiation [facility]. No effusion normal mediastinal silhouette. Hemoglobin 11.1 BUN 32 creatinine 1.26 I do not have anything to compare this to since 2017. Troponin is normal sodium potassium magnesium are normal. On the monitor the patient has been sinus bradycardia. Sometimes into the 40s but usually into the low 50s. Again I will note that the patient last year was noted to be in sinus bradycardia in the 50s. She has been a little on the hypertensive side. I do not believe the patient is requiring admission. When asked that she follow-up with cardiology. I do not see any medications that should make her bradycardic on her list that she provided though it may not be a complete list as she does get some care through [facility]. The patient was advised to return symptoms. Patient and family note understanding of plan is comfortable with it. History & Record Review Discussion w/independent historian: Patient Lab Data Attestation: I reviewed the patient's lab results. Labs: Laboratory Results - last 24 hr 11/11/23 15:50 WBC 7.9 RBC 3.92 L Hgb 11.1 L Hct 36.5 L MCV 93.1 MCH 28.3 MCHC 30.4 L RDW Std Deviation 51.0 H RDW Coeff of Carlos 15.0 H Plt Count 179 MPV 11.1 Immature Gran % (Auto) 0.500 Neut % (Auto) 70.4 H Lymph % (Auto) 17.3 L [place] % (Auto) 8.5 Eos % (Auto) 2.7 Baso % (Auto) 0.6 Absolute Neuts (auto) 5.6 Absolute Lymphs (auto) 1.37 Nucleated RBC % 0 Sodium 138 Potassium 4.6 Chloride 107 Carbon Dioxide 28.0 Anion Gap 3 L BUN 32 H Creatinine 1.26 H Estim Creat Clear Calc 40.51 Est GFR (MDRD) Af Amer 52 L Est GFR (MDRD) Non-Af 43 L BUN/Creatinine Ratio 25.4 H Glucose 92 Calcium 9.0 Magnesium 2.0 Troponin I High Sens 11 Radiography Diagnostic Testing: Clinical Impression(s) from Imaging Studies Chest X-Ray 11/11/23 17:05 IMPRESSION: 5.8 cm pulmonary opacity of the right apex which could be focal scarring or recurrent neoplasm. CT scan is recommended. Electronically Signed: Shay Heath MD at 18:45 EDT , EKG Initial EKG: Attestation: I personally reviewed and interpreted this EKG as follows: Comments: Sinus bradycardia ventricular rate of 48 bpm. Discharge Plan Triage Chief Complaint: Hypertension ED Provider: Yung Frederick Dx/Rx/DC Orders Clinical Impression: Bradycardia, sinus, Hypertension Instructions: ED Bradycardia Prescriptions: No Action albuterol sulfate 2.5 mg /3 mL (0.083 %) solution for nebulization 2.5 mg inhalation Q6H PRN (Reason: wheezing/ sob) biotin 800 mcg tablet 800 mcg PO DAILY fluticasone propionate 50 mcg/actuation spray,suspension 2 spray intranasal DAILY Rx Instructions: administer into each nostril lorazepam 0.5 mg tablet 0.5 mg PO QHS PRN (Reason: Anxiety) Patient Comments: takes at hs omega 4-vsw-kko-fish oil 300 mg-100 mg- 150 mg-1,000 mg capsule 1 cap PO DAILY pravastatin 10 MG tablet 40 mg PO DAILY Patient Comments: CHOLESTEROL Vitamin D3 2,000 UNITS capsule 2,000 units PO DAILY Qty: 30 0RF amlodipine 5 mg Tablet 5 mg PO DAILY fluticasone propion-salmeterol [Advair HFA] 115-21 mcg/actuation HFA aerosol inhaler 2 puff INHALATION BID Patient Comments: Inhale 2 Puffs as instructed twice daily. losartan 25 mg Tablet 25 mg PO DAILY Primary Care Provider: Ra Knight Referrals: Ricardo Noble MD [Med Staff - Active Staff] - As soon as possible (for cardiology evaluation) Ra Knight MD [Primary Care Provider] - Activity Restrictions/Additional Instructions: I would recommend following up with cardiology. You have a slower than normal heart rate but does not appear to be in need of an emergent pacemaker. Please return to the emergency department if you are passing out. It might also be interesting to see what your heart rate and blood pressure is while you are having your vertigo. Print Language: Occitan Disposition Disposition: Home, Self Care
--- NOTE | 2023-11-11 17:05 | RAD_ITS ---
STUDY: X-RAY CHEST REASON FOR EXAM: Female, 88 years old. hypertension Additional history obtained from the facility of previously treated right upper lobe lung cancer. TECHNIQUE: Single AP portable view of the chest. COMPARISON: 09/18/2022. FINDINGS: Elongated 5.8 cm pulmonary opacity of the right apex where the patient previously had a mass. Findings could be focal scarring or recurrent neoplasm. CT scan is recommended. Lungs otherwise clear. No effusions. Normal size heart. Normal mediastinum and june. Normal visualized pulmonary arteries. Normal visualized aortic arch and descending thoracic aorta. Normal visualized thoracic spine. Normal visualized ribs, clavicles, and shoulders. There is no demonstrated abnormality of the visualized soft tissue structures of the upper abdomen. RAD/Chest 1 View (Portable) IMPRESSION: 5.8 cm pulmonary opacity of the right apex which could be focal scarring or recurrent neoplasm. CT scan is recommended. Electronically Signed: Shay Heath MD at 18:45 EDT ,
[2023-11-11 17:18] LABS: Absolute Lymphocyte Count 1.37 X10^3/uL (0.83-4.51); Absolute Neutrophil Count 5.6 X10^3/uL (2.0-7.7); Basophil# 0.05 X10^3/uL; Basophil% 0.6 % (0-1); Eosinophil# 0.21 X10^3/uL; Eosinophils% 2.7 % (0-5); Hematocrit 36.5 % (37-47); Hemoglobin 11.1 g/dL (12.0-15.0); Lymphocyte # 1.37 X10^3/ul (0.83-4.51); Lymphocyte % 17.3 % (19-41); Mean Corp Hgb Conc 30.4 g/dL (32-36); Mean Corpuscular Hgb 28.3 pg (27.0-32.0); Mean Corpuscular Volume 93.1 fL (81-99); Mean Platelet Vol. 11.1 fl (6.2-12.0); Monocyte# 0.67 X10^3/uL; Monocyte% 8.5 % (0-10); NRBC Flagged by Analyzer 0 % (0-5); Neutrophil # 5.58 X10^3/uL (2.7-7.7); Neutrophil % 70.4 % (47-70); Platelet Count 179 K/mm3 (150-450); Red Blood Count 3.92 M/mm3 (4.2-5.4); White Blood Count 7.9 K/mm3 (4.4-11.0)
[2023-11-11 17:37] LABS: Anion Gap 3 (5-15); BUN 32 mg/dL (7-18); BUN/Creat Ratio 25.4 RATIO (10-20); Chloride 107 mmol/L (98-107); Creatinine, Serum 1.26 mg/dL (0.55-1.02); EST Glomerular Filtration Rate 43 mL/min (>60); Est Glom Filt Rate - Afr Amer 52 mL/min (>60); Estimated Creatinine Clearance 40.51 ml/min; Glucose 92 mg/dL (74-106); Potassium 4.6 mmol/L (3.5-5.1); Sodium Level 138 mmol/L (136-145); Troponin-I HS 11 pg/mL (3.0-54.0)
[2023-11-11 18:52] VITALS: BP 133/72; PULSE 49; RESP 17; TEMP 36.7; O2SAT 97
== END 2023-11-11 18:53 | disposition home or self-care (01) ==
PROVIDERS: Emergency Provider Emergency Medicine; PCP Internal Medicine; Visit Provider Emergency Medicine
DX: I12.9 Hypertensive chronic kidney disease with stage 1 through stage 4 chronic kidney disease, or unspecified chronic kidney disease (principal); J44.9 Chronic obstructive pulmonary disease, unspecified; N18.30 Chronic kidney disease, stage 3 unspecified; R00.1 Bradycardia, unspecified; Z87.891 Personal history of nicotine dependence; E78.00 Pure hypercholesterolemia, unspecified; Z79.899 Other long term (current) drug therapy; Z79.51 Long term (current) use of inhaled steroids; Z90.710 Acquired absence of both cervix and uterus; Z96.659 Presence of unspecified artificial knee joint
CPT/HCPCS: 71045; 80048; 83735; 84484; 85025; 93005; 99284; A4216

== ENCOUNTER 2023-11-20 13:16 | Emergency (ER) | payer MEDICARE, SELFPAY ==
[2023-11-20 13:17] VITALS: BP 104/58; PULSE 45; RESP 14; TEMP 36.2; O2SAT 94
--- NOTE | 2023-11-20 13:30 | ED.RN ---
Pt refused EKG
--- NOTE | 2023-11-20 13:38 | CPS ---
called by darby to do an EKG on patient due to low heart rate. Pt and refuse to have the EKG done at this time. Pt states she just had one last week here and wants to talk to the doctor first. She doesn't feel the need to repeat the test. This RT explained to and patient that an EKG can change randomly and the importance of having one. Pt and still refuse at this time
--- NOTE | 2023-11-20 14:09 | EKG12_ITS ---
Test Reason : WEAKNESS Blood Pressure : / mmHG Vent. Rate : 050 BPM Atrial Rate : 050 BPM P-R Int : 168 ms QRS Dur : 088 ms QT Int : 458 ms P-R-T Axes : 035 045 046 degrees QTc Int : 417 ms Sinus bradycardia Otherwise normal ECG Confirmed by INO ENCARNACION, EVELYN ([id number]), sports editor TONY SAINZ ([id number]) on 11/21/2023 10:02:10 AM Referred By: Confirmed By:EVELYN MCKINNON MD
--- NOTE | 2023-11-20 14:10 | EDS_ITS ---
HPI History of Present Illness Chief Complaint: Weakness Narrative Narrative: 88-year-old female past medical history of COPD, CKD, hypertension presents with feelings of lightheadedness and dizziness, near syncope. She states that she has a history of vertigo and has been treating dizziness with meclizine. Yesterday, everything was fine. However, she has had a few episodes of the last few minutes of near syncope and lightheadedness. They take her blood pressure in the morning, and her states that her heart rate was in the high 40s today. She does not take a beta-josie. She denies any fevers or chills, no cough or shortness of breath, no chest pain. No recent nausea or vomiting, no problems with bowel movements. She has not really been out in the heat. He states they were concerned because of all the lightheadedness and dizziness. 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 CKD (chronic kidney disease) stage 3, GFR 30-59 ml/min Home Medications ?Medication ?Instructions ?Recorded ?Last Taken ?Type Vitamin D3 2,000 units PO DAILY ##30 09/20/15 Unknown Rx amlodipine 5 mg tablet 5 mg PO DAILY 09/17/22 11/23/22 History albuterol sulfate 2.5 mg/3 mL 2.5 mg inhalation Q6H PRN 11/09/22 Unknown History (0.083 %) solution for nebulization wheezing/ sob biotin 800 mcg tablet 800 mcg PO DAILY 11/09/22 Unknown History fluticasone propionate 115 2 puff inhalation BID 11/09/22 Unknown History mcg-salmeterol 21 mcg/actuation HFA inhaler (Advair HFA) fluticasone propionate 50 2 spray intranasal DAILY 11/09/22 Unknown History mcg/actuation nasal spray,suspension lorazepam 0.5 mg tablet 0.5 mg PO QHS PRN Anxiety 11/09/22 Unknown History omega-3 300 mg-dha 100 mg-epa 150 1 cap PO DAILY 11/09/22 Unknown History mg-fish oil 1,000 mg capsule losartan 25 mg tablet 25 mg PO DAILY 11/21/22 11/23/22 History meclizine 25 mg tablet 25 mg PO BID-QID PRN 11/14/23 Unknown History pravastatin 40 mg tablet 40 mg PO DAILY 11/14/23 Unknown History Allergy/AdvReac Type Severity Reaction Status Date / Time bacitracin Allergy Rash Verified 11/11/23 15:33 neomycin Allergy Rash Verified 11/11/23 15:33 hydroxyzine AdvReac Unknown Verified 11/11/23 15:33 lovastatin AdvReac Other Verified 11/11/23 15:33 naproxen sodium (From AdvReac Unknown Verified 11/11/23 15:33 Anaprox) Sulfa (Sulfonamide AdvReac Unknown Verified 11/11/23 15:33 Antibiotics) trimethoprim AdvReac Unknown Verified 11/11/23 15:33 Family History Mother Heart disease age 92 Father Heart disease ASHD Sister Heart disease Brother CAD (coronary artery disease) stented Son Heart disease Grandfather Cancer throat Grandmother Cancer uterine Surgical History History of vein stripping History of hysterectomy Total knee replacement status Social History Smoking Status: Former smoker Tobacco: How many years used: 35 Electronic Cigarette Use: not used second hand exposure: Yes alcohol intake: never substance use type: does not use ROS ROS ED ROS Narrative Constitutional: No fever, no chills. HEENT: No sore throat. No neck pain. No loss of vision. No rhinorrhea. Cardiovascular: No chest pain. No palpitations. No pedal edema. Reported bradycardia in the high 40s. Respiratory: No cough, no shortness of breath. Abdominal: No abdominal pain. No nausea. No vomiting. Genitourinary: No dysuria. No hematuria. Musculoskeletal: No myalgias. No arthralgias. Neurologic: No headaches. Positive lightheadedness and dizziness. Skin: No rash. No change in color. Psychiatric: No depression. No anxiety. EXAM Physical Exam Narrative Exam Narrative: Afebrile. Vital signs noted. HEENT: Normocephalic. Atraumatic. PERRL, EOMI. Neck soft and supple. No point tenderness or step off. Cardiovascular: Positive bradycardia. No murmurs, rubs, or gallops appreciated. Respiratory: No tachypnea. Lungs clear to auscultation bilaterally. Gastrointestinal: Abdomen soft, nontender, with normoactive bowel sounds. No rebound or guarding. Neurological: Awake. Alert. Nonfocal, nonlateralizing. Skin: No rash. Normal color. No pallor. Musculoskeletal: No pedal edema. Full range of motion extremities. Const Vital Signs: 11/20/23 13:17 11/20/23 13:28 11/20/23 15:28 Temperature 97.2 F L Temperature Source Temporal Pulse Rate 45 L 54 L Pulse Rate [Lying] Pulse Rate [Sitting (for 1 minute prior to obtaining)] Pulse Rate [Standing (for 1 minute prior to obtaining)] Respiratory Rate 14 19 H Respiratory Pattern Normal Blood Pressure 104/58 L 138/58 H Blood Pressure [Lying] Blood Pressure [Sitting (for 1 minute prior to obtaining)] Blood Pressure [Standing (for 1 minute prior to obtaining)] Blood Pressure Mean 73 84 Blood Pressure Mean [Lying] Blood Pressure Mean [Sitting (for 1 minute prior to obtaining)] Blood Pressure Mean [Standing (for 1 minute prior to obtaining)] Pulse Ox 94 97 Oxygen Delivery Method Room Air Room Air 11/20/23 15:52 11/20/23 17:00 11/20/23 17:46 Temperature 98.2 F Temperature Source Pulse Rate 56 L 60 Pulse Rate [Lying] 60 Pulse Rate [Sitting (for 1 minute prior to obtaining)] 59 L Pulse Rate [Standing (for 1 minute prior to obtaining)] 55 L Respiratory Rate 18 16 Respiratory Pattern Blood Pressure 140/63 H 124/72 H Blood Pressure [Lying] 147/68 H Blood Pressure [Sitting (for 1 minute prior to obtaining)] 152/68 H Blood Pressure [Standing (for 1 minute prior to obtaining)] 132/59 H Blood Pressure Mean 88 89 Blood Pressure Mean [Lying] 94 Blood Pressure Mean [Sitting (for 1 minute prior to obtaining)] 96 Blood Pressure Mean [Standing (for 1 minute prior to obtaining)] 83 Pulse Ox 98 96 Oxygen Delivery Method Room Air MDM MDM MDM Narrative Medical decision making narrative: In the differential diagnosis is symptomatic bradycardia versus intravascular volume depletion versus orthostatic hypotension versus dehydration versus other electrolyte imbalance. Comprehensive workup was pursued. EKG was obtained which demonstrates sinus bradycardia at 50 bpm without ectopy or acute ST changes. No STEMI. I reviewed her medication list, and she does not have any evidence of taking a beta-josie. I reviewed her laboratory work and she has normal white count of 6.9 with hemoglobin stable at 10.9, platelet count normal at 177. Electrolyte panel shows sodium normal at 144 with potassium 4.3 and chloride 111. BUN is slightly elevated at 22 and creatinine 1.1 but she has a history of chronic kidney disease. LFTs are grossly unremarkable. Initial high-sensitivity troponin is 10 with a repeat at 2 hours being 10. I do not feel that she is having a non-STEMI. While urinalysis shows no evidence of infection with 0-5 white cells, there are 5 ketones. She may have more of an intravascular volume depletion. She was bolused normal saline 1 L intravenously and on the monitor her heart rate is now in the 50s and sometimes climbs above 60. She was able to ambulate to the bathroom twice without difficulty. Chest x-ray in 1 view interpreted by myself independently shows no evidence of pne umonia or pneumothorax. I reviewed the radiology report which confirms my independent interpretation. Upon repeat examination at approximately 1750, she feels well and would like to be discharged. Her intermittent dizziness may be more from slight dehydration/intravascular volume depletion or even vertigo for which she takes meclizine. Regardless, I do not feel that she is profoundly bradycardic which would require observation or admission at this time. She will follow-up with her founder and chief technical officer, Dr. Noble. Return instructions to the emergency department were reviewed. Patient and are comfortable with the plan. Disposition is discharged home in stable condition. History & Record Review Discussion w/independent historian: Patient and Family Lab Data Attestation: I reviewed the patient's lab results. Labs: Laboratory Results - last 24 hr 11/20/23 11/20/23 14:34 16:35 WBC 6.9 RBC 3.87 L Hgb 10.9 L Hct 36.3 L MCV 93.8 MCH 28.2 MCHC 30.0 L RDW Std Deviation 47.6 H RDW Coeff of Carlos 14.0 Plt Count 177 MPV 10.9 Immature Gran % (Auto) 0.300 Neut % (Auto) 70.9 H Lymph % (Auto) 15.8 L Crow[place] % (Auto) 8.7 Eos % (Auto) 3.6 Baso % (Auto) 0.7 Absolute Neuts (auto) 4.9 Absolute Lymphs (auto) 1.09 Nucleated RBC % 0 Sodium 144 Potassium 4.3 Chloride 111 H Carbon Dioxide 28.0 Anion Gap 5 BUN 22 H Creatinine 1.11 H Est GFR (MDRD) Af Amer 60 Est GFR (MDRD) Non-Af 50 L BUN/Creatinine Ratio 19.8 Glucose 112 H Calcium 8.6 Total Bilirubin 0.30 AST 22 ALT 24 Alkaline Phosphatase 67 Troponin I High Sens 10 10 Total Protein 6.5 Albumin 3.3 Globulin 3.2 Albumin/Globulin Ratio 1.0 Urine Color Yellow Urine Clarity Sl. Cloudy Urine pH 6.0 Ur Specific [place] 1.020 Urine Protein 30 H Urine Glucose (UA) Normal Urine Ketones 5 H Urine Occult Blood 10 H Urine Nitrite Negative Urine Bilirubin 1 H Urine Urobilinogen 4 H Ur Leukocyte Esterase 25 H Urine RBC 0-5 SEEN Urine WBC 0-5 SEEN Ur Squamous Epith Cells 0-5 SEEN Ur Renal Epithelial Cell 0-5 SEEN Urine Bacteria 2+ Hyaline Casts 0-5 SEEN Urine Mucus 1+ Radiography Diagnostic Testing: Clinical Impression(s) from Imaging Studies Chest X-Ray 11/20/23 14:30 IMPRESSION: Stable examination. Electronically Signed: Vahe Villagomez MD at 14:53 EDT , Discharge Plan Triage Chief Complaint: Weakness ED Provider: Reggie Daugherty Dx/Rx/DC Orders Clinical Impression: Bradycardia, Vertigo, Dizziness Instructions: ED Bradycardia, ED Dizziness, Uncertain Cause Prescriptions: No Action albuterol sulfate 2.5 mg /3 mL (0.083 %) solution for nebulization 2.5 mg inhalation Q6H PRN (Reason: wheezing/ sob) biotin 800 mcg tablet 800 mcg PO DAILY fluticasone propionate 50 mcg/actuation spray,suspension 2 spray intranasal DAILY Rx Instructions: administer into each nostril lorazepam 0.5 mg tablet 0.5 mg PO QHS PRN (Reason: Anxiety) Patient Comments: takes at hs omega 5-omn-wcr-fish oil 300 mg-100 mg- 150 mg-1,000 mg capsule 1 cap PO DAILY pravastatin 40 mg tablet 40 mg PO DAILY meclizine 25 mg tablet 25 mg PO BID-QID PRN Vitamin D3 2,000 UNITS capsule 2,000 units PO DAILY Qty: 30 0RF amlodipine 5 mg Tablet 5 mg PO DAILY fluticasone propion-salmeterol [Advair HFA] 115-21 mcg/actuation HFA aerosol inhaler 2 puff INHALATION BID Patient Comments: Inhale 2 Puffs as instructed twice daily. losartan 25 mg Tablet 25 mg PO DAILY Primary Care Provider: Ra Knight Referrals: Ricardo oNble MD [Med Staff - Active Staff] - As soon as possible Ra Knight MD [Primary Care Provider] - 3-5 Days if not improving Activity Restrictions/Additional Instructions: Return with consistently decreased heart rate, new or worsening symptoms. Print Language: Kyrgyz Disposition Disposition: Home, Self Care
--- NOTE | 2023-11-20 14:30 | RAD_ITS ---
STUDY: X-RAY CHEST REASON FOR EXAM: Female, 88 years old. COPD TECHNIQUE: Single AP portable view of the chest. COMPARISON: Comparison is made with prior study dated November 11, 2023. FINDINGS: EKG electrodes are seen. Stable 5.8 cm cylindrical opacity in the right lung apex. This may represent volume loss. There is evidence of a elevation of the right hemidiaphragm with increased markings at the right lung base suggestive of atelectasis. Normal size heart. Normal mediastinum and june. Normal visualized pulmonary arteries. There is atherosclerotic calcification of the aortic arch with tortuosity. There are diffuse degenerative changes of the visualized thoracic spine. There is degenerative osteoarthritis of the bilateral shoulders. There is no demonstrated abnormality of the visualized soft tissue structures of the upper abdomen. RAD/Chest 1 View (Portable) IMPRESSION: Stable examination. Electronically Signed: Vahe Villagomez MD at 14:53 EDT ,
[2023-11-20] MEDS: 0.9% Normal Saline (1000mL) 1,000 ML 1000 ML IV (14:31)
[2023-11-20 14:43] LABS: Absolute Lymphocyte Count 1.09 X10^3/uL (0.83-4.51); Absolute Neutrophil Count 4.9 X10^3/uL (2.0-7.7); Basophil# 0.05 X10^3/uL; Basophil% 0.7 % (0-1); Eosinophil# 0.25 X10^3/uL; Eosinophils% 3.6 % (0-5); Hematocrit 36.3 % (37-47); Hemoglobin 10.9 g/dL (12.0-15.0); Lymphocyte # 1.09 X10^3/ul (0.83-4.51); Lymphocyte % 15.8 % (19-41); Mean Corpuscular Hgb 28.2 pg (27.0-32.0); Mean Corpuscular Volume 93.8 fL (81-99); Mean Platelet Vol. 10.9 fl (6.2-12.0); Monocyte% 8.7 % (0-10); NRBC Flagged by Analyzer 0 % (0-5); Neutrophil # 4.87 X10^3/uL (2.7-7.7); Neutrophil % 70.9 % (47-70); Platelet Count 177 K/mm3 (150-450); RBC Distribution Width SD 47.6 fl (35.1-43.9); Red Blood Count 3.87 M/mm3 (4.2-5.4); White Blood Count 6.9 K/mm3 (4.4-11.0)
[2023-11-20 14:50] LABS: Color, Urine Yellow (Yellow); Glucose, Dipstick Normal (Normal); Ketone-Dipstick 5 mg/dl (Negative); Leukocyte Esterase-Dipstick 25 /ul (Negative); Nitrite-Dipstick Negative (Negative); Occult Blood-Urine 10 /ul (Negative); Protein-Dipstick 30 mg/dl (Negative); Urine Clarity Sl. Cloudy (Clear); Urine Urobilinogen 4 mg/dl (Normal)
[2023-11-20 14:51] LABS: Urine Bilirubin Dipstick 1 mg/dL (Negative)
[2023-11-20 14:58] LABS: AST(SGOT) 22 U/L (15-37); Alanine Aminotransfer ALT/SGPT 24 U/L (13-56); Albumin, Serum 3.3 g/dL (3.2-5.0); Alkaline Phosphatase 67 U/L (45-117); Anion Gap 5 (5-15); BUN 22 mg/dL (7-18); BUN/Creat Ratio 19.8 RATIO (10-20); Calcium,Total 8.6 mg/dL (8.5-10.1); Chloride 111 mmol/L (98-107); Creatinine, Serum 1.11 mg/dL (0.55-1.02); EST Glomerular Filtration Rate 50 mL/min (>60); Est Glom Filt Rate - Afr Amer 60 mL/min (>60); Globulin 3.2 g/dL (2.2-4.2); Glucose 112 mg/dL (74-106); Potassium 4.3 mmol/L (3.5-5.1); Protein, Total 6.5 g/dL (6.4-8.2); Sodium Level 144 mmol/L (136-145); Troponin-I HS (w/2H Reflex) 10 pg/mL (3.0-54.0)
[2023-11-20 15:06] LABS: Hyaline Cast 0-5 SEEN /lpf (0-5); Renal Epithelial Cells 0-5 SEEN /hpf (0-5)
[2023-11-20 15:07] LABS: Squamous Epithelial Cells - UA 0-5 SEEN /hpf (5-10); White Blood Cells 0-5 SEEN /hpf (0-5)
[2023-11-20 15:08] LABS: Bacteria 2+ /hpf (None Seen); Red Blood Cells-Urine 0-5 SEEN /hpf (0-5)
[2023-11-20 15:09] LABS: Mucous, Urine 1+ /hpf (<or=2+)
[2023-11-20 15:28] VITALS: BP 138/58; PULSE 54; RESP 19; O2SAT 97
[2023-11-20 15:52] VITALS: BP 132/59; BP 147/68; BP 152/68; PULSE 55; PULSE 59; PULSE 60
[2023-11-20 16:37] LABS: Reflex Troponin-HS? (from REC) Y
[2023-11-20 17:00] VITALS: BP 140/63; PULSE 56; RESP 18; O2SAT 98
[2023-11-20 17:07] LABS: Troponin-I HS 10 pg/mL (3.0-54.0)
[2023-11-20 17:46] VITALS: BP 124/72; PULSE 60; RESP 16; TEMP 36.8; O2SAT 96
== END 2023-11-20 18:00 | disposition home or self-care (01) ==
PROVIDERS: Emergency Provider Emergency Medicine; PCP Internal Medicine; Visit Provider Emergency Medicine
DX: R00.1 Bradycardia, unspecified (principal); J44.9 Chronic obstructive pulmonary disease, unspecified; N18.30 Chronic kidney disease, stage 3 unspecified; R42 Dizziness and giddiness; I12.9 Hypertensive chronic kidney disease with stage 1 through stage 4 chronic kidney disease, or unspecified chronic kidney disease; Z87.891 Personal history of nicotine dependence
CPT/HCPCS: 71045; 80053; 81001; 84484; 85025; 93005; 96360; 96361; 99284; J7030; A4216

== ENCOUNTER 2023-12-29 11:03 | Inpatient (IN) | payer MEDICARE, SELFPAY ==
[2023-12-29] VITALS (14 sets, daily range): BP systolic 102–159; BP diastolic 46–78; PULSE 58–87; RESP 17–22; TEMP 36.6–38; O2SAT 86–98; BMI 36.1; BMI 34.7
--- NOTE | 2023-12-29 11:18 | EKG12_ITS ---
Test Reason : SOB Blood Pressure : / mmHG Vent. Rate : 067 BPM Atrial Rate : 067 BPM P-R Int : 154 ms QRS Dur : 084 ms QT Int : 400 ms P-R-T Axes : 078 071 046 degrees QTc Int : 422 ms Sinus rhythm with Premature supraventricular complexes Nonspecific ST abnormality Abnormal ECG Confirmed by RADHA ENCARNACION, SIS ([id number]), film or videotape editor MANUEL KAHN ([id number]) on 12/31/2023 2:23:42 PM Referred By: Confirmed By:PALLAVI GARCIA MD
--- NOTE | 2023-12-29 11:18 | RAD_ITS ---
STUDY: X-RAY CHEST REASON FOR EXAM: Female, 88 years old. Chest pain TECHNIQUE: Frontal view of the chest COMPARISON: CT dated 12/21/2023. FINDINGS: There is right upper lobe consolidation. The lungs are otherwise clear. There are no pleural effusions. There is no pneumothorax. The heart is normal in size. The visualized osseous structures are within normal limits. RAD/Chest 1 View (Portable) IMPRESSION: Right upper lobe consolidation. Please see the CT dated 12/29/2023 for additional details. Electronically Signed: Jose Flynn MD at 14:09 EDT ,
--- NOTE | 2023-12-29 11:20 | EDS_ITS ---
HPI History of Present Illness Chief Complaint: Shortness of Breath Informant: patient and family Narrative Narrative: 88-year-old female presenting to the emergency room with cough dyspnea fever and hypoxia. Patient states that she began to feel ill on and Saturday. She thought about coming to the emergency room yesterday. Patient notes a productive cough. She denies vomiting or diarrhea. She endorses myalgias. She has not had anything for fever yet today. She has a history of primary squamous cell carcinoma of the right lung. This was treated with surgery and radiation. Patient denies any known lung conditions. Patient denies any rashes. She does not wear home oxygen. 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 CKD (chronic kidney disease) stage 3, GFR 30-59 ml/min Home Medications ?Medication ?Instructions ?Recorded ?Last Taken ?Type amlodipine 5 mg tablet 5 mg PO DAILY 09/17/22 11/23/22 History albuterol sulfate 2.5 mg/3 mL 2.5 mg inhalation Q6H PRN 11/09/22 Unknown History (0.083 %) solution for nebulization wheezing/ sob biotin 800 mcg tablet 800 mcg PO DAILY 11/09/22 Unknown History fluticasone propionate 115 2 puff inhalation BID 11/09/22 Unknown History mcg-salmeterol 21 mcg/actuation HFA inhaler (Advair HFA) lorazepam 0.5 mg tablet 0.5 mg PO QHS PRN Anxiety 11/09/22 Unknown History omega-3 300 mg-dha 100 mg-epa 150 1 cap PO DAILY 11/09/22 Unknown History mg-fish oil 1,000 mg capsule meclizine 25 mg tablet 25 mg PO BID-QID PRN dizziness 11/14/23 Unknown History pravastatin 40 mg tablet 40 mg PO QHS 11/14/23 Unknown History cholecalciferol (vitamin D3) 250 250 mcg PO DAILY 12/11/23 Unknown History mcg (10,000 unit) capsule fluticasone propionate 50 2 spray intranasal DAILY PRN nasal 12/11/23 Unknown History mcg/actuation nasal congestion spray,suspension gabapentin 100 mg capsule 200 mg PO BID 12/11/23 Unknown History losartan 50 mg tablet 50 mg PO DAILY #90 tabs 12/11/23 Unknown Rx Allergy/AdvReac Type Severity Reaction Status Date / Time bacitracin Allergy Rash Verified 12/29/23 11:04 neomycin Allergy Rash Verified 12/29/23 11:04 hydroxyzine AdvReac Unknown Verified 12/29/23 11:04 lovastatin AdvReac Other Verified 12/29/23 11:04 naproxen sodium (From AdvReac Unknown Verified 12/29/23 11:04 Anaprox) Sulfa (Sulfonamide AdvReac Unknown Verified 12/29/23 11:04 Antibiotics) trimethoprim AdvReac Unknown Verified 12/29/23 11:04 Family History Mother Heart disease age 92 Father Heart disease ASHD Sister Heart disease Brother CAD (coronary artery disease) stented Son Heart disease Grandfather Cancer throat Grandmother Cancer uterine Surgical History History of vein stripping History of hysterectomy Total knee replacement status Social History Smoking Status: Former smoker Tobacco: How many years used: 35 Electronic Cigarette Use: not used second hand exposure: Yes alcohol intake: never substance use type: does not use ROS ROS ED Constitutional Constitutional ED: Reports chills, fever(s) and sweats; Denies weight loss Eyes Eyes: Denies change in vision or diplopia ENT ENT ED: Denies ear pain, rhinorrhea or sore throat Cardiovascular Cardiovascular: Denies chest pain, orthopnea, palpitations or racing heartbeat Respiratory/Chest Respiratory/Chest: Reports cough, dyspnea, dyspnea on exertion and sputum; Denies orthopnea Gastrointestinal Gastrointestinal: Denies abdominal pain, diarrhea, nausea or vomiting Genitourinary Genitourinary ED: Denies dysuria, hematuria or urinary frequency Musculoskeletal Musculoskeletal: Reports myalgias; Denies arthralgias or neck pain Integumentary Denies abscess or rash Neurologic Neurologic: Denies headache(s) or weakness Psychiatric Psychiatric: Denies anxiety, depression, suicidal ideation or suicidal thoughts Endocrine Endocrinology: Denies polydipsia, polyphagia or polyuria Allergic/Immunologic Allergic/Immunologic ED: Denies mouth swelling, tongue swelling or urticaria EXAM Physical Exam Const Vital Signs: 12/29/23 11:05 12/29/23 11:05 12/29/23 11:06 Temperature 100.3 F H 100.4 F H Temperature Source Oral Oral Pulse Rate 58 L 69 Respiratory Rate 18 17 Respiratory Effort Respiratory Depth Respiratory Pattern Blood Pressure 122/53 H 159/60 H Blood Pressure Mean 76 93 Pulse Ox 88 94 86 Oxygen Delivery Method Room Air Nasal Cannula Room Air Oxygen Flow Rate (L/min) 2 12/29/23 11:17 12/29/23 11:21 12/29/23 11:36 Temperature Temperature Source Pulse Rate Respiratory Rate Respiratory Effort Labored Respiratory Depth Normal Respiratory Pattern Normal Blood Pressure Blood Pressure Mean Pulse Ox 97 93 Oxygen Delivery Method Nasal Cannula Nasal Cannula Nasal Cannula Oxygen Flow Rate (L/min) 3 3 3 12/29/23 11:36 12/29/23 12:04 12/29/23 12:06 Temperature 98.3 F Temperature Source Oral Pulse Rate 68 87 81 Respiratory Rate 18 22 H 21 H Respiratory Effort Respiratory Depth Respiratory Pattern Normal Blood Pressure 152/60 H 152/60 H Blood Pressure Mean 90 90 Pulse Ox 96 98 Oxygen Delivery Method Nasal Cannula Nasal Cannula Oxygen Flow Rate (L/min) 2 2 12/29/23 13:00 12/29/23 13:25 Temperature 98.6 F 98.3 F Temperature Source Temporal Pulse Rate 81 83 Respiratory Rate 20 H 19 H Respiratory Effort Respiratory Depth Respiratory Pattern Blood Pressure 131/46 H 147/61 H Blood Pressure Mean 74 89 Pulse Ox 94 93 Oxygen Delivery Method Nasal Cannula Oxygen Flow Rate (L/min) 2 Positive well nourished and well developed General Appearance ED: well developed and NAD HEENT Reports normocephalic, head/scalp atraumatic and moist mucous membranes Eyes PERRL and EOMs intact bilaterally Neck no lymphadenopathy, supple and no JVD Resp Resp Narrative: Patient has a slight conversational dyspnea. She is able to speak in full sentences. Effort and Inspection: Negative for pain with movement Auscultation: rhonchi, wheezes expiratory wheezes and diminished lung sounds Cardio regular rate, regular rhythm and no murmurs GI normal to inspection, nondistended, normoactive bowel sounds and non-tender Palpation: soft Back/Spine no CVA tenderness and normal ROM Extremity normal to inspection General Extremety ED: Negative for edema General Extremity: Negative for edema Neuro oriented x3 and CN's II-XII intact bilaterally Sensorium / Orientation: alert Motor Exam: strength 5/5 throughout Psych mental status grossly normal Mood & Affect: Negative for depressed or tearful Skin no rashes or lesions noted and no wounds MDM MDM MDM Narrative Medical decision making narrative: Differential diagnosis includes but not limited to malignancy pneumonia bronchitis bronchospasm pulmonary embolism dehydration electrolyte abnormality ACS My independent interpretation of the chest x-ray is right upper lobe consolidation. White count 8.0 hemoglobin 10.3 platelet count of 146. INR 1.2 PTT 29.2. Creatinine 1.03 with a BUN of 12. Glucose 118. Normal lactic acid normal troponin. Urinalysis contaminated but no overt infection. EKG is a sinus rhythm. CTA of the chest was obtained which demonstrates right upper lobe consolidation. There is a 1.8 x 1.6 cm perihilar mass concerning for causing obstructive pneumonia. There is some mild mediastinal lymphadenopathy. Patient received breathing treatments IV fluids Rocephin and azithromycin. Blood and urine cultures obtained. I spoke with the patient regarding the above findings. Patient will be admitted to the hospital for further treatment. She sees Dr. Magana for radiation oncology through the clinic here in [facility]. She has an upcoming appointment in January. Patient denies a history of COPD but there is that history in the computer. She has bilateral wheezing and some rhonchi. I will speak with the hospitalist regarding possible treatment with steroids. Near the time of admission the patient developed a headache. She received Tylenol so give her a dose of Motrin. History & Record Review Discussion w/independent historian: Patient and Family Additional record(s) reviewed:: Prior outpatient record, Prior ED visit and Prior labs Lab Data Attestation: I reviewed the patient's lab results. Labs: Laboratory Results - last 24 hr 12/29/23 12/29/23 11:30 12:32 WBC 8.0 RBC 3.69 L Hgb 10.3 L Hct 33.5 L MCV 90.8 MCH 27.9 MCHC 30.7 L RDW Std Deviation 44.1 H RDW Coeff of Carlos 13.2 Plt Count 146 L MPV 10.8 Immature Gran % (Auto) 0.400 Neut % (Auto) 80.5 H Lymph % (Auto) 6.7 L [place] % (Auto) 10.7 H Eos % (Auto) 1.3 Baso % (Auto) 0.4 Absolute Neuts (auto) 6.4 Absolute Lymphs (auto) 0.53 L Nucleated RBC % 0 PT 14.7 INR 1.2 APTT 29.2 Sodium 139 Potassium 4.2 Chloride 106 Carbon Dioxide 28.0 Anion Gap 5 BUN 12 Creatinine 1.03 H Estim Creat Clear Calc 50.52 Est GFR (MDRD) Af Amer 65 Est GFR (MDRD) Non-Af 54 L BUN/Creatinine Ratio 11.7 Glucose 118 H Lactic Acid 0.9 Calcium 9.0 Total Bilirubin 0.70 AST 17 ALT 18 Alkaline Phosphatase 83 Troponin I High Sens 15 Total Protein 7.0 Albumin 3.1 L Globulin 3.9 Albumin/Globulin Ratio 0.8 L Urine Color Yellow Urine Clarity Sl. Cloudy Urine pH 7.0 Ur Specific Lyons 1.010 Urine Protein 15 H Urine Glucose (UA) Normal Urine Ketones Negative Urine Occult Blood Negative Urine Nitrite Negative Urine Bilirubin Negative Urine Urobilinogen 1 H Ur Leukocyte Esterase 500 H Urine RBC 0 SEEN Urine WBC 5-10 SEEN Ur Squamous Epith Cells 10-25 SEEN Urine Bacteria RARE Urine Mucus 0 SEEN Radiography Diagnostic Testing: Clinical Impression(s) from Imaging Studies Chest X-Ray 12/29/23 11:18 IMPRESSION: Right upper lobe consolidation. Please see the CT dated 12/29/2023 for additional details. Electronically Signed: Jose Flynn MD at 14:09 EDT , Chest CTA 12/29/23 12:01 IMPRESSION: No pulmonary embolus. No thoracic aortic aneurysm or dissection. 1.8 x 1.6 cm right perihilar mass with postobstructive consolidation in the right upper lobe. Mild mediastinal lymphadenopathy. This likely represents the patient''s known neoplasm. Patchy airspace opacity in the left lung which is likely infectious in etiology. Small right pleural effusion. 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
[2023-12-29] MEDS: Ipratropium/Albuterol Sulfate 3 ML AMPUL.NEB INHALATION (11:25)
[2023-12-29] MEDS: Albuterol 2.5 MG/3 ML VIAL.NEB. INHALATION ×2 (11:25→19:07)
[2023-12-29] MEDS: Acetaminophen 500 MG Tablet 1000 MG PO (11:35)
[2023-12-29] MEDS: 0.9% Normal Saline (1000mL) 1,000 ML 150 ML IV ×2 (11:35→22:16)
[2023-12-29 11:40] LABS: Absolute Lymphocyte Count 0.53 X10^3/uL (0.83-4.51); Absolute Neutrophil Count 6.4 X10^3/uL (2.0-7.7); Basophil# 0.03 X10^3/uL; Basophil% 0.4 % (0-1); Eosinophils% 1.3 % (0-5); Hematocrit 33.5 % (37-47); Hemoglobin 10.3 g/dL (12.0-15.0); Lymphocyte # 0.53 X10^3/ul (0.83-4.51); Lymphocyte % 6.7 % (19-41); Mean Corp Hgb Conc 30.7 g/dL (32-36); Mean Corpuscular Hgb 27.9 pg (27.0-32.0); Mean Corpuscular Volume 90.8 fL (81-99); Mean Platelet Vol. 10.8 fl (6.2-12.0); Monocyte# 0.85 X10^3/uL; Monocyte% 10.7 % (0-10); NRBC Flagged by Analyzer 0 % (0-5); Neutrophil # 6.42 X10^3/uL (2.7-7.7); Neutrophil % 80.5 % (47-70); POSITIVE DIFFERENTIAL YES; Platelet Count 146 K/mm3 (150-450); RBC Distribution Width CV 13.2 % (11.6-14.6); RBC Distribution Width SD 44.1 fl (35.1-43.9); Red Blood Count 3.69 M/mm3 (4.2-5.4)
[2023-12-29 11:47] LABS: International Normalized Ratio 1.2; Prothrombin Time (Protime)PT. 14.7 SECONDS (11.7-14.9)
[2023-12-29 11:48] LABS: Partial Thromboplast Time 29.2 Seconds (24.1-36.2)
[2023-12-29 11:57] LABS: ALB/GLOB Ratio 0.8 RATIO (0.9-2.4); AST(SGOT) 17 U/L (15-37); Alanine Aminotransfer ALT/SGPT 18 U/L (13-56); Albumin, Serum 3.1 g/dL (3.2-5.0); Alkaline Phosphatase 83 U/L (45-117); Anion Gap 5 (5-15); BUN 12 mg/dL (7-18); BUN/Creat Ratio 11.7 RATIO (10-20); Chloride 106 mmol/L (98-107); Creatinine, Serum 1.03 mg/dL (0.55-1.02); EST Glomerular Filtration Rate 54 mL/min (>60); Est Glom Filt Rate - Afr Amer 65 mL/min (>60); Estimated Creatinine Clearance 50.52 ml/min; Globulin 3.9 g/dL (2.2-4.2); Glucose 118 mg/dL (74-106); Potassium 4.2 mmol/L (3.5-5.1); Sodium Level 139 mmol/L (136-145); Troponin-I HS 15 pg/mL (3.0-54.0)
--- NOTE | 2023-12-29 12:01 | CT_ITS ---
STUDY: CTA CHEST WITH CONTRAST REASON FOR EXAM: Female, 88 years old. Lung cancer. Dyspnea. Fever. RADIATION DOSAGE (If Supplied By Facility): CTDIvol = ( 59 ) mGy, DLP = ( 1284 ) mGycm TECHNIQUE: Transaxial imaging was performed following intravenous administration of 100 ml of Isovue-370 contrast material. Coronal and sagittal reformatted images were created. 3D post processed images were created. Individualized dose optimization techniques were used for this CT. COMPARISON: Prior study dated: 08/20/2022 FINDINGS: LUNGS: There is a 1.8 x 1.6 cm right perihilar mass with postobstructive consolidation of the right upper lobe. There is mild patchy airspace opacity in the left upper lobe. PLEURAL SPACE: There is a small right pleural effusion. There is no left-sided effusion. There is no pneumothorax. MEDIASTINUM: The heart and pericardium are within normal limits. There is no pneumomediastinum. There is mild mediastinal lymphadenopathy. VESSELS There is no pulmonary embolus. The pulmonary artery is normal in caliber. There is no thoracic aortic aneurysm or dissection. UPPER ABDOMEN: Images through the upper abdomen demonstrate no significant abnormality. BONES: There are no destructive osseous lesions. SOFT TISSUES: The visualized soft tissues are unremarkable. CT/CTA Chest W/WO Contrast IMPRESSION: No pulmonary embolus. No thoracic aortic aneurysm or dissection. 1.8 x 1.6 cm right perihilar mass with postobstructive consolidation in the right upper lobe. Mild mediastinal lymphadenopathy. This likely represents the patient''s known neoplasm. Patchy airspace opacity in the left lung which is likely infectious in etiology. Small right pleural effusion. Electronically Signed: Jose Flynn MD at 12:49 EDT ,
[2023-12-29 12:02] LABS: Lactic Acid 0.9 mmol/L (0.4-1.9)
[2023-12-29] MEDS: Ceftriaxone 1 GM/50 ML BAG IV (12:31)
[2023-12-29 12:37] LABS: Mucous, Urine 0 SEEN /hpf (<or=2+)
[2023-12-29 12:43] LABS: Color, Urine Yellow (Yellow); Glucose, Dipstick Normal (Normal); Ketone-Dipstick Negative (Negative); Leukocyte Esterase-Dipstick 500 /ul (Negative); Nitrite-Dipstick Negative (Negative); Occult Blood-Urine Negative /ul (Negative); Protein-Dipstick 15 mg/dl (Negative); Urine Bilirubin Dipstick Negative (Negative); Urine Clarity Sl. Cloudy (Clear); Urine Urobilinogen 1 mg/dl (Normal)
[2023-12-29 12:59] LABS: Bacteria RARE /hpf (None Seen); Red Blood Cells-Urine 0 SEEN /hpf (0-5); Squamous Epithelial Cells - UA 10-25 SEEN /hpf (5-10); White Blood Cells 5-10 SEEN /hpf (0-5)
[2023-12-29] MEDS: Azithromycin 500 MG in Dextrose 5%-Water (250mL Bag) 250 ML 250 MG IV (13:19)
--- NOTE | 2023-12-29 13:19 | HP.PCM_ITS ---
HPI - General General Date of Admission: 12/29/23 Date of Service: 12/29/23 Chief Complaint: shortness of breath HPI Narrative LIBIA ANTON, is a 88 F with a PMH as outlined who presents via the ED on 12/29/2023 with a complaint of shortness of breath, fever and hypoxia for about 3 days prior to admission. She has a history of lung cancer and is s/p radiation. She had a cough productive of yellowish sputum, with associated weakness and generalised muscle weakness. She denies fever or chills. Review of systems is otherwise negative. She does not wear oxygen at home. Vitals in the ED were BP of 131/46, KS of 81, RR of 20 and oxygen sats of 94% on 2L of oxygen. Temp was 98.6F. CBC showed hemoglobin of 10 with WBC of 8.1 and platelets of 146. INR is 1.2. Chemistry shows sodium of 139 with potassium of 4.2 and bicarb of 28. Cr is 1.03. Urinalysis showed rare bacteria and WBC of 5- 10 per high-power field. CTA chest showed no PE and no evidence of dissection and showed a 1.8 x 1.6 cm right perihilar mass with postobstructive consolidation in the right upper lobe and mild mediastinal lymphadenopathy likely representing the patient's known neoplasm and patchy airspace opacity in the left lung which is likely infectious in nature as well as a small right pleural effusion. [facility] Medical History Bradycardia Vertigo Hypertension GERD (gastroesophageal reflux disease) Hyperlipidemia Anxiety Bradycardia, sinus Cancer Arthritis Vitamin D deficiency Pneumonia Personal history of colonic polyps Other specified gastritis without mention of hemorrhage Osteoarthritis Obesity, Class II, BMI 35-39.9 Non-small cell cancer of right lung Multiple thyroid nodules Mitral valve disorder Low back pain Internal hemorrhoids without mention of complication Hypercholesteremia Hiatal hernia Environmental allergies Depressive disorder, not elsewhere classified COPD (chronic obstructive pulmonary disease) with chronic bronchitis CKD (chronic kidney disease) stage 3, GFR 30-59 ml/min Home Medications ?Medication ?Instructions ?Recorded ?Last Taken ?Type amlodipine 5 mg tablet 5 mg PO DAILY 09/17/22 11/23/22 History albuterol sulfate 2.5 mg/3 mL 2.5 mg inhalation Q6H PRN 11/09/22 Unknown History (0.083 %) solution for nebulization wheezing/ sob biotin 800 mcg tablet 800 mcg PO DAILY 11/09/22 Unknown History fluticasone propionate 115 2 puff inhalation BID 11/09/22 Unknown History mcg-salmeterol 21 mcg/actuation HFA inhaler (Advair HFA) lorazepam 0.5 mg tablet 0.5 mg PO QHS PRN Anxiety 11/09/22 Unknown History omega-3 300 mg-dha 100 mg-epa 150 1 cap PO DAILY 11/09/22 Unknown History mg-fish oil 1,000 mg capsule meclizine 25 mg tablet 25 mg PO BID-QID PRN dizziness 11/14/23 Unknown History pravastatin 40 mg tablet 40 mg PO QHS 11/14/23 Unknown History cholecalciferol (vitamin D3) 250 250 mcg PO DAILY 12/11/23 Unknown History mcg (10,000 unit) capsule fluticasone propionate 50 2 spray intranasal DAILY PRN nasal 12/11/23 Unknown History mcg/actuation nasal congestion spray,suspension gabapentin 100 mg capsule 200 mg PO BID 12/11/23 Unknown History losartan 50 mg tablet 50 mg PO DAILY #90 tabs 12/11/23 Unknown Rx Allergy/AdvReac Type Severity Reaction Status Date / Time bacitracin Allergy Rash Verified 12/29/23 11:04 neomycin Allergy Rash Verified 12/29/23 11:04 hydroxyzine AdvReac Unknown Verified 12/29/23 11:04 lovastatin AdvReac Other Verified 12/29/23 11:04 naproxen sodium (From AdvReac Unknown Verified 12/29/23 11:04 Anaprox) Sulfa (Sulfonamide AdvReac Unknown Verified 12/29/23 11:04 Antibiotics) trimethoprim AdvReac Unknown Verified 12/29/23 11:04 Family History Mother Heart disease age 92 Father Heart disease ASHD Sister Heart disease Brother CAD (coronary artery disease) stented Son Heart disease Grandfather Cancer throat Grandmother Cancer uterine Surgical History History of vein stripping History of hysterectomy Total knee replacement status Social History Smoking Status: Former smoker Tobacco: How many years used: 35 Electronic Cigarette Use: not used second hand exposure: Yes alcohol intake: never substance use type: does not use ROS Constitutional Constitutional: Reports anorexia, chills, fatigue, fever(s), malaise and weakness; Denies change in weight Eyes Eyes: Denies change in vision ENT HEENT: Denies dysphagia, headache(s), nasal congestion, sore throat or throat swelling Cardiovascular Cardiovascular: Denies chest pain, edema, palpitations or syncope Respiratory/Chest Respiratory/Chest: Reports cough, shortness of breath at rest and shortness of breath with exertion; Denies wheezing Gastrointestinal Gastrointestinal: Denies abdominal pain, diarrhea or dyspepsia Genitourinary Genitourinary: Denies dysuria Musculoskeletal Musculoskeletal: Denies back pain Neurologic Neurologic: Denies dizziness, focal weakness or headache(s) Psychiatric Psychiatric: Denies anxiety Vital Signs Vital Signs Vital Signs: 12/29/23 11:05 12/29/23 11:05 12/29/23 11:06 Temperature 100.3 F H 100.4 F H Temperature Source Oral Oral Pulse Rate 58 L 69 Respiratory Rate 18 17 Respiratory Effort Respiratory Depth Respiratory Pattern Blood Pressure 122/53 H 159/60 H Blood Pressure Mean 76 93 Pulse Ox 88 94 86 Oxygen Delivery Method Room Air Nasal Cannula Room Air Oxygen Flow Rate (L/min) 2 12/29/23 11:17 12/29/23 11:21 12/29/23 11:36 Temperature Temperature Source Pulse Rate Respiratory Rate Respiratory Effort Labored Respiratory Depth Normal Respiratory Pattern Normal Blood Pressure Blood Pressure Mean Pulse Ox 97 93 Oxygen Delivery Method Nasal Cannula Nasal Cannula Nasal Cannula Oxygen Flow Rate (L/min) 3 3 3 12/29/23 11:36 12/29/23 12:04 12/29/23 12:06 Temperature 98.3 F Temperature Source Oral Pulse Rate 68 87 81 Respiratory Rate 18 22 H 21 H Respiratory Effort Respiratory Depth Respiratory Pattern Normal Blood Pressure 152/60 H 152/60 H Blood Pressure Mean 90 90 Pulse Ox 96 98 Oxygen Delivery Method Nasal Cannula Nasal Cannula Oxygen Flow Rate (L/min) 2 2 12/29/23 13:00 Temperature 98.6 F Temperature Source Temporal Pulse Rate 81 Respiratory Rate 20 H Respiratory Effort Respiratory Depth Respiratory Pattern Blood Pressure 131/46 H Blood Pressure Mean 74 Pulse Ox 94 Oxygen Delivery Method Nasal Cannula Oxygen Flow Rate (L/min) 2 Weight Weight: 238 lb 8.642 oz Body Mass Index (BMI) 36.1 Physical Exam Const alert and oriented x3 General Appearance: cooperative HEENT normocephalic and head/scalp atraumatic Mouth: dry mucous membranes Eyes PERRL and EOMs intact bilaterally Neck no lymphadenopathy and supple Cardio regular rate, regular rhythm, S1 normal heart sound, S2 normal heart sound and no murmurs GI normal to inspection, nondistended, normoactive bowel sounds, soft to palpation, non-tender and non-distended Extremity normal capillary refill, no clubbing, cyanosis or edema and no calf tenderness General Extremity: no tenderness to palpation of joints or extremities Skin General Skin Exam: no breakdown Neuro CN's II-XII intact bilaterally, no focal motor deficits, no sensory deficits noted and deep tendon reflexes 2+ bilaterally Motor Exam: strength 5/5 throughout and general weakness Psych thought process normal, cooperative and affect normal Appearance: appropriate Results Lab / Micro Data 12/29/23 11:30 12/29/23 11:30 Labs: Laboratory Results - last 24 hr 12/29/23 11:30: WBC 8.0, RBC 3.69 L, Hgb 10.3 L, Hct 33.5 L, MCV 90.8, MCH 27.9, MCHC 30.7 L, RDW Std Deviation 44.1 H, RDW Coeff of Carlos 13.2, Plt Count 146 L, MPV 10.8, Immature Gran % (Auto) 0.400, Neut % (Auto) 80.5 H, Lymph % (Auto) 6.7 L, [place] % (Auto) 10.7 H, Eos % (Auto) 1.3, Baso % (Auto) 0.4, Absolute Neuts (auto) 6.4, Absolute Lymphs (auto) 0.53 L, Nucleated RBC % 0, PT 14.7, INR 1.2, APTT 29.2, Sodium 139, Potassium 4.2, Chloride 106, Carbon Dioxide 28.0, Anion Gap 5, BUN 12, Creatinine 1.03 H, Estim Creat Clear Calc 50.52, Est GFR (MDRD) Af Amer 65, Est GFR (MDRD) Non-Af 54 L, BUN/Creatinine Ratio 11.7, Glucose 118 H , Lactic Acid 0.9, Calcium 9.0, Total Bilirubin 0.70, AST 17, ALT 18, Alkaline Phosphatase 83, Troponin I High Sens 15, Total Protein 7.0, Albumin 3.1 L, Globulin 3.9, Albumin/Globulin Ratio 0.8 L 12/29/23 12:32: Urine Color Yellow, Urine Clarity Sl. Cloudy, Urine pH 7.0, Ur Specific [place] 1.010, Urine Protein 15 H, Urine Glucose (UA) Normal, Urine Ketones Negative, Urine Occult Blood Negative, Urine Nitrite Negative, Urine Bilirubin Negative, Urine Urobilinogen 1 H, Ur Leukocyte Esterase 500 H, Urine RBC 0 SEEN, Urine WBC 5-10 SEEN, Ur Squamous Epith Cells 10-25 SEEN, Urine Bacteria RARE, Urine Mucus 0 SEEN Micro: Microbiology 12/29/23 11:34 Mucosa - Nose SARS-CoV-2, Influenza & RSV (PCR) - Final Imaging Radiology Impression Chest CTA 12/29/23 12:01 IMPRESSION: No pulmonary embolus. No thoracic aortic aneurysm or dissection. 1.8 x 1.6 cm right perihilar mass with postobstructive consolidation in the right upper lobe. Mild mediastinal lymphadenopathy. This likely represents the patient''s known neoplasm. Patchy airspace opacity in the left lung which is likely infectious in etiology. Small right pleural effusion. Electronically Signed: Jose Flynn MD at 12:49 EDT , Assessment & Plan Assessment/Plan (1) Acute hypoxic respiratory failure: (2) Postobstructive pneumonia: PLAN: Plan #Hypoxia due to right post obstructive pneumonia * admit to med surg * currently on 2L of oxygen * start on IV ceftriaxone and azithromycin * breathing treatment with bronchodilators * urine for strep and legionella. Sputum culture * titrate oxygen to maintain sats >90% * #History of right squamous cell lung cancer * s/ radiation and chemotherapy * CT chest showed no PE and showed a 1.8 x 1 6 cm right perihilar mass with postobstructive Co. sedation the right upper lobe and mild mediastinal lymphadenopathy and patchy airspace disease in the left lung as well as small right pleural effusion * to follow up with oncology on outpatient basis * #Hypertension: on amlodipine and losartan #Hyperlipidemia: on statin DVT prophylaxis: lovenox CODE STATUS: Full code * Patient and counseled extensively about different types of CODE STATUS including full code, DNR CCA and DNR CCA. Patient elects to be full code. Total [id number] time 16 minutes. Charges/Coding Visit Charges Inpatient E&M: 31666 Init Hosp L3 Procedures Hospitalists Procedures: 99434 Advncd Care Plan 30 Min
[2023-12-29] MEDS: Ibuprofen 600 MG Tablet PO (14:18)
[2023-12-29] MEDS: 0.9% Saline Lock 10 ML Syringe IV (16:24)
[2023-12-29] MEDS: Pravastatin 40 MG Tablet PO (22:14)
[2023-12-29] MEDS: Gabapentin 100 MG Capsule 200 MG PO (22:14)
[2023-12-30] VITALS (8 sets, daily range): BP systolic 108–155; BP diastolic 63–88; PULSE 75–93; RESP 16–20; TEMP 36.5–36.7; O2SAT 94–97
[2023-12-30] MEDS: 0.9% Normal Saline (1000mL) 1,000 ML 150 ML IV (05:18)
[2023-12-30 07:00] LABS: Absolute Lymphocyte Count 0.42 X10^3/uL (0.83-4.51); Absolute Neutrophil Count 6.4 X10^3/uL (2.0-7.7); Basophil# 0.01 X10^3/uL; Basophil% 0.1 % (0-1); Hematocrit 35.7 % (37-47); Lymphocyte # 0.42 X10^3/ul (0.83-4.51); Lymphocyte % 5.9 % (19-41); Mean Corp Hgb Conc 30.8 g/dL (32-36); Mean Corpuscular Hgb 28.4 pg (27.0-32.0); Mean Platelet Vol. 10.9 fl (6.2-12.0); Monocyte# 0.12 X10^3/uL; Monocyte% 1.7 % (0-10); NRBC Flagged by Analyzer 0 % (0-5); Neutrophil # 6.44 X10^3/uL (2.7-7.7); Neutrophil % 91.3 % (47-70); POSITIVE DIFFERENTIAL YES; Platelet Count 173 K/mm3 (150-450); RBC Distribution Width CV 13.2 % (11.6-14.6); RBC Distribution Width SD 44.6 fl (35.1-43.9); Red Blood Count 3.88 M/mm3 (4.2-5.4); White Blood Count 7.1 K/mm3 (4.4-11.0)
[2023-12-30 07:24] LABS: Anion Gap 6 (5-15); BUN 12 mg/dL (7-18); BUN/Creat Ratio 11.5 RATIO (10-20); Calcium,Total 8.8 mg/dL (8.5-10.1); Chloride 111 mmol/L (98-107); Creatinine, Serum 1.04 mg/dL (0.55-1.02); EST Glomerular Filtration Rate 53 mL/min (>60); Est Glom Filt Rate - Afr Amer 65 mL/min (>60); Estimated Creatinine Clearance 48.86 ml/min; Glucose 156 mg/dL (74-106); Potassium 3.7 mmol/L (3.5-5.1); Sodium Level 142 mmol/L (136-145)
[2023-12-30] MEDS: Albuterol 2.5 MG/3 ML VIAL.NEB. INHALATION ×2 (07:35→18:07)
[2023-12-30] MEDS: Ceftriaxone 1 GM/50 ML BAG IV (10:03)
[2023-12-30] MEDS: Gabapentin 100 MG Capsule 200 MG PO ×2 (10:03→22:10)
[2023-12-30] MEDS: Losartan Potassium 50 MG Tablet PO (10:03)
[2023-12-30] MEDS: Cholecalciferol (Vit D3) 125 MCG CAPSULE (5,000 UNITS) 250 MCG PO (10:03)
[2023-12-30] MEDS: amLODIPine 5 MG Tablet PO (10:04)
[2023-12-30] MEDS: Enoxaparin 40 MG/0.4 ML Syringe SC (10:04)
--- NOTE | 2023-12-30 10:40 | PN_ITS ---
Subjective Subjective Patient seen and examined. She is still having a bit of wheezing. She denies any fever or chills and is still coughing. She feels her breathing has improved a bit. She is on 2 L of oxygen. Review of systems otherwise negative. Objective Data Objective Data Vital Signs: Vital Signs Temp Pulse Resp BP Pulse Ox O2 Del Method O2 Flow Rate 98.1 F 88 20 H 155/77 H 96 Nasal Cannula 2 12/30/23 07:55 12/30/23 07:55 12/30/23 07:55 12/30/23 07:55 12/30/23 07:55 12/30/23 07:55 12/30/23 07:55 Oxygen Flow Rate (L/min) 2 Oxygen Delivery Method Nasal Cannula Weight: 228 lb Body Mass Index (BMI) 34.7 Intake & Output: Intake and Output for Last 24 Hours 12/28/23 12/29/23 12/30/23 23:59 23:59 23:59 Intake Total 1505.0 / 1505.0 1712.5 / 1712.5 Balance 1505.0 / 1505.0 1712.5 / 1712.5 Lab / Micro Data 12/30/23 06:14 12/30/23 06:14 Labs: Laboratory Results - last 24 hr 12/29/23 11:30: WBC 8.0, RBC 3.69 L, Hgb 10.3 L, Hct 33.5 L, MCV 90.8, MCH 27.9, MCHC 30.7 L, RDW Std Deviation 44.1 H, RDW Coeff of Carlos 13.2, Plt Count 146 L, MPV 10.8, Immature Gran % (Auto) 0.400, Neut % (Auto) 80.5 H, Lymph % (Auto) 6.7 L, [place] % (Auto) 10.7 H, Eos % (Auto) 1.3, Baso % (Auto) 0.4, Absolute Neuts (auto) 6.4, Absolute Lymphs (auto) 0.53 L, Nucleated RBC % 0, PT 14.7, INR 1.2, APTT 29.2, Sodium 139, Potassium 4.2, Chloride 106, Carbon Dioxide 28.0, Anion Gap 5, BUN 12, Creatinine 1.03 H, Estim Creat Clear Calc 50.52, Est GFR (MDRD) Af Amer 65, Est GFR (MDRD) Non-Af 54 L, BUN/Creatinine Ratio 11.7, Glucose 118 H , Lactic Acid 0.9, Calcium 9.0, Total Bilirubin 0.70, AST 17, ALT 18, Alkaline Phosphatase 83, Troponin I High Sens 15, Total Protein 7.0, Albumin 3.1 L, Globulin 3.9, Albumin/Globulin Ratio 0.8 L 12/29/23 12:32: Urine Color Yellow, Urine Clarity Sl. Cloudy, Urine pH 7.0, Ur Specific [place] 1.010, Urine Protein 15 H, Urine Glucose (UA) Normal, Urine Ketones Negative, Urine Occult Blood Negative, Urine Nitrite Negative, Urine Bilirubin Negative, Urine Urobilinogen 1 H, Ur Leukocyte Esterase 500 H, Urine RBC 0 SEEN, Urine WBC 5-10 SEEN, Ur Squamous Epith Cells 10-25 SEEN, Urine Bacteria RARE, Urine Mucus 0 SEEN 12/30/23 06:14: WBC 7.1, RBC 3.88 L, Hgb 11.0 L, Hct 35.7 L, MCV 92.0, MCH 28.4, MCHC 30.8 L, RDW Std Deviation 44.6 H, RDW Coeff of Carlos 13.2, Plt Count 173, MPV 10.9, Immature Gran % (Auto) 1.000 H, Neut % (Auto) 91.3 H, Lymph % (Auto) 5.9 L , [place] % (Auto) 1.7, Eos % (Auto) 0.0, Baso % (Auto) 0.1, Absolute Neuts (auto) 6.4, Absolute Lymphs (auto) 0.42 L, Nucleated RBC % 0, Sodium 142, Potassium 3.7, Chloride 111 H, Carbon Dioxide 25.0, Anion Gap 6, BUN 12, Creatinine 1.04 H , Estim Creat Clear Calc 48.86, Est GFR (MDRD) Af Amer 65, Est GFR (MDRD) Non-Af 53 L, BUN/Creatinine Ratio 11.5, Glucose 156 H, Calcium 8.8 Micro: Microbiology 12/29/23 17:33 Mucosa - Nasopharyngeal Respiratory Panel (PCR) - Final 12/29/23 18:10 Urine, Clean Catch Legionella Antigen - Final 12/29/23 18:10 Urine, Clean Catch Streptococcus pneumoniae Antigen (M - Final 07/28/24 11:34 Mucosa - Nose SARS-CoV-2, Influenza & RSV (PCR) - Final Radiography Diagnostic Testing: Radiology Impression Chest X-Ray 12/29/23 11:18 IMPRESSION: Right upper lobe consolidation. Please see the CT dated 12/29/2023 for additional details. Electronically Signed: Jose Flynn MD at 14:09 EDT , Chest CTA 12/29/23 12:01 IMPRESSION: No pulmonary embolus. No thoracic aortic aneurysm or dissection. 1.8 x 1.6 cm right perihilar mass with postobstructive consolidation in the right upper lobe. Mild mediastinal lymphadenopathy. This likely represents the patient''s known neoplasm. Patchy airspace opacity in the left lung which is likely infectious in etiology. Small right pleural effusion. Electronically Signed: Jose Flynn MD at 12:49 EDT , Physical Exam Const alert and oriented x3 General Appearance: cooperative HEENT normocephalic and head/scalp atraumatic Eyes PERRL and EOMs intact bilaterally Neck no lymphadenopathy and supple Cardio regular rate, regular rhythm, S1 normal heart sound, S2 normal heart sound and no murmurs GI normal to inspection, nondistended, normoactive bowel sounds, soft to palpation, non-tender and non-distended Extremity normal capillary refill, no clubbing, cyanosis or edema and no calf tenderness General Extremity: no tenderness to palpation of joints or extremities Skin General Skin Exam: no breakdown Neuro CN's II-XII intact bilaterally, no focal motor deficits, no sensory deficits noted and deep tendon reflexes 2+ bilaterally Motor Exam: strength 5/5 throughout and general weakness Psych thought process normal, cooperative and affect normal Appearance: appropriate Assessment & Plan Assessment/Plan (1) Acute hypoxic respiratory failure: (2) Postobstructive pneumonia: PLAN: Plan #Hypoxia due to right post obstructive pneumonia * remains on 2L of oxygen * on IV ceftriaxone and azithromycin * currently on 2L of oxygen * start on IV ceftriaxone and azithromycin * breathing treatment with bronchodilators * urine for strep and legionella negative. Sputum culture pending * titrate oxygen to maintain sats >90% * #History of right squamous cell lung cancer * s/ radiation and chemotherapy * CT chest showed no PE and showed a 1.8 x 1 6 cm right perihilar mass with postobstructive Co. sedation the right upper lobe and mild mediastinal lymphadenopathy and patchy airspace disease in the left lung as well as small right pleural effusion * to follow up with oncology on outpatient basis * #Hypertension: on amlodipine and losartan #Hyperlipidemia: on statin DVT prophylaxis: lovenox CODE STATUS: DNRCCA no intubation Charges/Coding Visit Charges Inpatient E&M: 59594 Subs Hosp L2
[2023-12-30] MEDS: Azithromycin 500 MG in Dextrose 5%-Water (250mL Bag) 250 ML 250 MG IV (10:56)
--- NOTE | 2023-12-30 12:24 | CASEMGMT ---
KATHLEEN ARMAS Assessment: Face to Face with pt for initial transition planning/care coordination assessment. RN CHANDA introduced self and role at [facility], pt voices understanding and consents to assessment. Pt is A&O x4 and answers all questions appropriately at this time. Pt sitting up in chair with oxygen on in no distress. Pt at bedside and pt agreeable to assessment with present. Care providers, pharmacy, and demographics verified/updated. Admitting Dx: hypoxia, post obstructive pna Strata Score: 3 PCP:[place] Specialists:[place] [facility] Preferred [facility] Insurance: [facility] Prescription Benefit: yes LNOK: Ladarius Oscar, Living Arrangements: Pt lives with in a single story home with 3 steps to enter. Pt reports she is I in ADLs, does laundry. Pt is able to prepare meals and she gets groceries with . Pt denies concerns at home. Transportation: Pt drives self and denies concerns with transportation. DME:pox, cane, walker HHC/SNF: Denies hx of Pt states no concerns with going home at time of dc. Discussed local in network DME companies should pt need oxygen upon dc, pt chose [employer]. Pt denies any needs for HH or any services in the home or outside the home. Pt states no further concerns/needs. CM to follow. Advised pt to ask CM if any further question/concerns/needs arise, voices understanding. Pt Goal:Home Plan: Home, follow for oxygen Aditya WANG CM
[2023-12-30] MEDS: 0.9% Saline Lock 10 ML Syringe IV ×2 (14:01→22:12)
[2023-12-30] MEDS: LORazepam 0.5 MG Tablet PO (22:10)
[2023-12-30] MEDS: Pravastatin 40 MG Tablet PO (22:10)
[2023-12-30] MEDS: Acetaminophen 325 MG Tablet 650 MG PO (22:11)
[2023-12-30] MEDS: oxyCODONE 5 MG Tablet PO (22:11)
[2023-12-30] MEDS: MELATONIN 10 MG TABLET 20 MG PO (22:59)
[2023-12-30] MEDS: guaiFENesin 600 MG Tablet PO (23:00)
[2023-12-31] VITALS (11 sets, daily range): BP systolic 118–165; BP diastolic 59–91; PULSE 63–120; RESP 16–20; TEMP 36.1–36.6; O2SAT 91–98
[2023-12-31] MEDS: 0.9% Saline Lock 10 ML Syringe IV ×3 (06:20→21:46)
[2023-12-31] MEDS: amLODIPine 5 MG Tablet PO (06:20)
[2023-12-31] MEDS: Ondansetron 4 MG/2 ML Vial IV (06:20)
[2023-12-31 06:43] LABS: Absolute Lymphocyte Count 0.46 X10^3/uL (0.83-4.51); Absolute Neutrophil Count 10.5 X10^3/uL (2.0-7.7); Hemoglobin 10.9 g/dL (12.0-15.0); Lymphocyte # 0.46 X10^3/ul (0.83-4.51); Mean Corp Hgb Conc 31.1 g/dL (32-36); Mean Corpuscular Hgb 28.2 pg (27.0-32.0); Mean Corpuscular Volume 90.7 fL (81-99); Monocyte# 0.41 X10^3/uL; Monocyte% 3.6 % (0-10); NRBC Flagged by Analyzer 0 % (0-5); Neutrophil # 10.47 X10^3/uL (2.7-7.7); Neutrophil % 91.5 % (47-70); POSITIVE DIFFERENTIAL YES; Platelet Count 181 K/mm3 (150-450); RBC Distribution Width CV 13.3 % (11.6-14.6); Red Blood Count 3.86 M/mm3 (4.2-5.4); White Blood Count 11.4 K/mm3 (4.4-11.0)
[2023-12-31 06:53] LABS: Differential Indicated SCAN CRITERIA MET
[2023-12-31] MEDS: Albuterol 2.5 MG/3 ML VIAL.NEB. INHALATION ×3 (07:37→19:28)
[2023-12-31 07:39] LABS: Anion Gap 6 (5-15); BUN 21 mg/dL (7-18); BUN/Creat Ratio 22.2 RATIO (10-20); Calcium,Total 9.7 mg/dL (8.5-10.1); Chloride 109 mmol/L (98-107); Creatinine, Serum 0.95 mg/dL (0.55-1.02); EST Glomerular Filtration Rate 60 mL/min (>60); Est Glom Filt Rate - Afr Amer 72 mL/min (>60); Estimated Creatinine Clearance 53.49 ml/min; Glucose 162 mg/dL (74-106); Sodium Level 143 mmol/L (136-145)
[2023-12-31] MEDS: Enoxaparin 40 MG/0.4 ML Syringe SC (08:19)
[2023-12-31] MEDS: guaiFENesin 600 MG Tablet PO ×2 (08:19→21:46)
[2023-12-31] MEDS: Losartan Potassium 50 MG Tablet PO (08:19)
[2023-12-31] MEDS: Cholecalciferol (Vit D3) 125 MCG CAPSULE (5,000 UNITS) 250 MCG PO (08:19)
[2023-12-31] MEDS: Gabapentin 100 MG Capsule 200 MG PO ×2 (09:43→21:46)
[2023-12-31] MEDS: Ceftriaxone 1 GM/50 ML BAG IV (09:44)
--- NOTE | 2023-12-31 10:18 | PN_ITS ---
Subjective Subjective Patient seen and examined. She is still wheezing a bit. She is still coughing, but denies any fever, chills, chest pain, dizziness, nausea, vomiting or any other symptoms. Review of systems is otherwise negative. Objective Data Objective Data Vital Signs: Vital Signs Temp Pulse Resp BP Pulse Ox O2 Del Method O2 Flow Rate 97.8 F 76 20 H 135/62 H 94 Nasal Cannula 2 12/31/23 08:15 12/31/23 08:15 12/31/23 08:15 12/31/23 08:15 12/31/23 08:15 12/31/23 08:20 12/31/23 09:20 Oxygen Flow Rate (L/min) 2 Oxygen Delivery Method Nasal Cannula Weight: 227 lb 15.998 oz Body Mass Index (BMI) 34.7 Intake & Output: Intake and Output for Last 24 Hours 12/29/23 12/30/23 12/31/23 23:59 23:59 23:59 Intake Total 1505.0 / 1505.0 Balance 1505.0 / 1505.0 Lab / Micro Data 12/31/23 06:05 12/31/23 06:05 Labs: Laboratory Results - last 24 hr 12/31/23 06:05: WBC 11.4 H, RBC 3.86 L, Hgb 10.9 L, Hct 35.0 L, MCV 90.7, MCH 28.2, MCHC 31.1 L, RDW Std Deviation 44.0 H, RDW Coeff of Carlos 13.3, Plt Count 181, MPV 11.0, Immature Gran % (Auto) 0.900, Neut % (Auto) 91.5 H, Lymph % (Auto) 4.0 L, [place] % (Auto) 3.6, Eos % (Auto) 0.0, Baso % (Auto) 0.0, Absolute Neuts (auto) 10.5 H, Absolute Lymphs (auto) 0.46 L, Nucleated RBC % 0, Sodium 143, Potassium 4.0, Chloride 109 H, Carbon Dioxide 28.0, Anion Gap 6, BUN 21 H, Creatinine 0.95, Estim Creat Clear Calc 53.49, Est GFR (MDRD) Af Amer 72, Est GFR (MDRD) Non-Af 60, BUN/Creatinine Ratio 22.2 H, Glucose 162 H, Calcium 9.7 Micro: Microbiology 12/29/23 16:10 Sputum, Expectorated/Coughed Gram Stain - Final 12/29/23 16:10 Sputum, Expectorated/Coughed Respiratory Culture - Preliminary 12/29/23 12:32 Urine, Clean Catch Urine Culture - Final Mixed Gram Pos & Gram Neg Org 12/29/23 17:33 Mucosa - Nasopharyngeal Respiratory Panel (PCR) - Final 12/29/23 18:10 Urine, Clean Catch Legionella Antigen - Final 12/29/23 18:10 Urine, Clean Catch Streptococcus pneumoniae Antigen (M - Final 12/29/23 11:34 Mucosa - Nose SARS-CoV-2, Influenza & RSV (PCR) - Final Physical Exam Const alert and oriented x3 General Appearance: cooperative HEENT normocephalic, head/scalp atraumatic, moist oral mucous membranes and oropharynx normal Eyes PERRL and EOMs intact bilaterally Neck no lymphadenopathy and supple Resp Resp Narrative: diminished breath sounds bibasally, few crackles and mild wheezing. On 2L of oxygen by nasal canula Cardio regular rate, regular rhythm, S1 normal heart sound, S2 normal heart sound and no murmurs GI normal to inspection, nondistended, normoactive bowel sounds, soft to palpation, non-tender and non-distended Extremity normal capillary refill, no clubbing, cyanosis or edema and no calf tenderness General Extremity: no tenderness to palpation of joints or extremities Skin General Skin Exam: no breakdown Neuro CN's II-XII intact bilaterally, no focal motor deficits, no sensory deficits noted and deep tendon reflexes 2+ bilaterally Motor Exam: strength 5/5 throughout and general weakness Psych thought process normal, cooperative and affect normal Appearance: appropriate Assessment & Plan Assessment/Plan (1) Acute hypoxic respiratory failure: (2) Postobstructive pneumonia: PLAN: Plan #Hypoxia due to right post obstructive pneumonia * remains on 2L of oxygen * on IV ceftriaxone and azithromycin * breathing treatment with bronchodilators * urine for strep and legionella negative. Sputum culture growing mixed normal respiratory pj * titrate oxygen to maintain sats >90% * #History of right squamous cell lung cancer * s/ radiation and chemotherapy * CT chest showed no PE and showed a 1.8 x 1 6 cm right perihilar mass with postobstructive Co. sedation the right upper lobe and mild mediastinal lymphadenopathy and patchy airspace disease in the left lung as well as small right pleural effusion * to follow up with oncology on outpatient basis * #Hypertension: on amlodipine and losartan #Hyperlipidemia: on statin DVT prophylaxis: lovenox CODE STATUS: DNRCCA no intubation Disposition: anticipate dc over the next 1-2 days. Charges/Coding Visit Charges Inpatient E&M: 24801 Subs Hosp L2
[2023-12-31] MEDS: Azithromycin 500 MG in Dextrose 5%-Water (250mL Bag) 250 ML 250 MG IV (10:47)
[2023-12-31] MEDS: oxyCODONE 5 MG Tablet PO (14:01)
[2023-12-31] MEDS: Acetaminophen 325 MG Tablet 650 MG PO (14:02)
[2023-12-31] MEDS: LORazepam 0.5 MG Tablet PO (17:29)
[2023-12-31] MEDS: Pravastatin 40 MG Tablet PO (21:46)
[2023-12-31] MEDS: MELATONIN 10 MG TABLET 20 MG PO (21:46)
--- NOTE | 2023-12-31 22:14 | PCM.HOSP.N ---
Hospitalist Note Heart rate in the 120s. In and out of atrial fibrillation. Will initiate metoprolol 50 mg twice daily.
[2023-12-31] MEDS: Metoprolol Tartrate 50 MG Tablet PO (22:30)
[2024-01-01] VITALS (14 sets, daily range): BP systolic 141–168; BP diastolic 72–88; PULSE 68–114; RESP 16–20; TEMP 36.5–36.8; O2SAT 88–97
[2024-01-01] MEDS: 0.9% Saline Lock 10 ML Syringe IV ×2 (05:32→14:13)
[2024-01-01] MEDS: Albuterol 2.5 MG/3 ML VIAL.NEB. INHALATION ×3 (06:49→19:54)
[2024-01-01 06:52] LABS: Absolute Lymphocyte Count 0.49 X10^3/uL (0.83-4.51); Absolute Neutrophil Count 10.6 X10^3/uL (2.0-7.7); Basophil# 0.01 X10^3/uL; Basophil% 0.1 % (0-1); Hematocrit 32.6 % (37-47); Lymphocyte # 0.49 X10^3/ul (0.83-4.51); Lymphocyte % 4.1 % (19-41); Mean Corp Hgb Conc 30.7 g/dL (32-36); Mean Corpuscular Hgb 28.2 pg (27.0-32.0); Mean Corpuscular Volume 91.8 fL (81-99); Mean Platelet Vol. 10.8 fl (6.2-12.0); Monocyte% 4.2 % (0-10); NRBC Flagged by Analyzer 0 % (0-5); Neutrophil # 10.63 X10^3/uL (2.7-7.7); Neutrophil % 89.9 % (47-70); POSITIVE DIFFERENTIAL YES; Platelet Count 208 K/mm3 (150-450); RBC Distribution Width CV 13.3 % (11.6-14.6); RBC Distribution Width SD 45.3 fl (35.1-43.9); Red Blood Count 3.55 M/mm3 (4.2-5.4); White Blood Count 11.8 K/mm3 (4.4-11.0)
[2024-01-01 07:15] LABS: Anion Gap 3 (5-15); BUN 29 mg/dL (7-18); BUN/Creat Ratio 27.6 RATIO (10-20); Calcium,Total 8.7 mg/dL (8.5-10.1); Chloride 109 mmol/L (98-107); Creatinine, Serum 1.05 mg/dL (0.55-1.02); EST Glomerular Filtration Rate 53 mL/min (>60); Est Glom Filt Rate - Afr Amer 64 mL/min (>60); Estimated Creatinine Clearance 48.39 ml/min; Glucose 137 mg/dL (74-106); Potassium 4.7 mmol/L (3.5-5.1); Sodium Level 141 mmol/L (136-145)
[2024-01-01] MEDS: Enoxaparin 40 MG/0.4 ML Syringe SC (08:26)
[2024-01-01] MEDS: guaiFENesin 600 MG Tablet PO ×2 (08:26→21:34)
[2024-01-01] MEDS: Azithromycin 500 MG in Dextrose 5%-Water (250mL Bag) 250 ML 250 MG IV (08:26)
[2024-01-01] MEDS: Ceftriaxone 1 GM/50 ML BAG IV (08:26)
[2024-01-01] MEDS: amLODIPine 5 MG Tablet PO (08:27)
[2024-01-01] MEDS: Losartan Potassium 50 MG Tablet PO (08:27)
[2024-01-01] MEDS: Cholecalciferol (Vit D3) 125 MCG CAPSULE (5,000 UNITS) 250 MCG PO (08:27)
[2024-01-01] MEDS: Metoprolol Tartrate 50 MG Tablet PO ×2 (10:30→21:35)
[2024-01-01] MEDS: Gabapentin 100 MG Capsule 200 MG PO ×2 (10:30→21:34)
--- NOTE | 2024-01-01 11:33 | CASEMGMT ---
Addendum entered by Silvio Castro 01/01/24 13:35: Per [facility] @ [facility], they are able to accept pt. KATHLEEN ARMAS to room and she was made aware. Original Note: KATHLEEN ARMAS NOTE: KATHLEEN ARMAS notified that pt/ interested in HHC. KATHLEEN ARMAS to room. Pt sitting up in chair in room. in room visiting. Introduced self and role. Questions answered about HHC and pt & aware of [employer]'s requirements of being home-bound and they both state [place]. Pt and state [facility] is preference and decline wanting list of other HHC agencies unless [facility] unable to accept him. Call placed to [facility] and referral made. They are able to accept pt. Pt and made aware. Home O2 testing has been completed. Pt qualifies for O2 @ 2 l/m continuously. Pt and made aware of home O2 set-up process and questions answered. They confirm they prefer [employer]. Humble BRENNAN RN, CM
--- NOTE | 2024-01-01 11:39 | ECHOD_ITS ---
Reason For Study: Afib, Aflutter Procedure This was a 2D Doppler, Color Flow transthoracic echocardiogram. Exam performed portable in patient room. Left Ventricle Normal LV size. The estimated ejection fraction is 65 %. Unable to assess diastolic dysfunction. No regional wall motion abnormalities noted. Right Ventricle Normal RV size. Normal systolic function. Atria The left and right atria are normal. No doppler evidence for ASD. Mitral Valve There is moderate mitral annular calcification. There is no mitral valve stenosis. Mild (1+) mitral valve insufficiency. Tricuspid Valve There is no tricuspid stenosis. Trivial tricuspid valve insufficiency. Pulmonary artery systolic pressure is 35 mmHg. Aortic Valve Mild diffuse aortic valve thickening. Trisinus/trileaflet aortic valve. There is no aortic stenosis. No aortic valve insufficiency. Pulmonic Valve There is no pulmonic valvular stenosis. No pulmonic valve insufficiency. Great Vessels Normal aortic root. Pericardium/Pleural No pericardial effusion. MMode/2D Measurements & Calculations LVIDd: 4.8 cm IVSd: 1.2 cm Ao root diam: 3.5 cm LVIDs: 2.9 cm LVPWd: 1.1 cm FS: 39.4 % LAV(MOD-bp): 68.7 ml LVAd ap4: 28.2 cm2 SV(MOD-sp4): 54.4 ml LAV(MOD-bp) Indexed: 32.3 ml/m2 LVLd ap4: 7.6 cm LAV(MOD-sp2): 71.1 ml EDV(MOD-sp4): 88.2 ml LAV(MOD-sp4): 62.7 ml EDV(sp4-el): 88.6 ml LVAs ap4: 15.5 cm2 LVLs ap4: 6.3 cm ESV(MOD-sp4): 33.8 ml ESV(sp4-el): 32.3 ml EF(MOD-sp4): 61.6 % EF(sp4-el): 63.5 % SV(sp4-el): 56.3 ml LA A4 area: 20.8 cm2 LA dimension(2D): 4.7 cm RA A4 area: 19.9 cm2 TAPSE: 2.3 cm Time Measurements MV dec time: 0.21 sec Doppler Measurements & Calculations MV E max deejay: 135.9 cm/sec Lat Peak E' Deejay: 9.2 cm/sec Med Peak E' Deejay: 7.6 cm/sec MV A max deejay: 99.8 cm/sec E/E' lat: 14.7 E/E' med: 18.0 MV E/A: 1.4 MV V2 max: 159.5 cm/sec Ao V2 max: 178.6 cm/sec MV max P.2 mmHg MV dec slope: 639.5 cm/sec2 Ao max P.8 mmHg MV V2 mean: 88.3 cm/sec Ao V2 mean: 117.9 cm/sec MV mean P.5 mmHg Ao mean P.4 mmHg MV V2 VTI: 45.8 cm Ao V2 VTI: 40.8 cm AV (velocity ratio): 0.84 LV V1 max: 156.2 cm/sec PA V2 max: 93.1 cm/sec TR max deejay: 271.4 cm/sec LV V1 max P.8 mmHg TR max P.5 mmHg LV V1 mean P.2 mmHg LV V1 mean: 108.0 cm/sec LV V1 VTI: 34.5 cm ECHO/Echo Complete Interpretation Summary The estimated ejection fraction is 65 %. Unable to assess diastolic dysfunction. Mild (1+) mitral valve insufficiency. Ordering Physician: Clare Noble Referring Physician: Ra Knight Performed By: Katerina Forte RVT, RDCS and Student
--- NOTE | 2024-01-01 16:23 | DCINST_ITS ---
Discharge Instructions Diet Discharge Diet: Low fat / Low cholesterol Activity Discharge Activity: Return to Normal Activity Weight Bearing Status: Weight bearing as tolerated Dressing / Incision Call your doctor if you observe: Fever of 101 or Higher, Shortness of breath, Dizziness, Swelling in the ankles, Chest pain and Increased palpitations (irregular heartbeat) Follow Up Care Test Results: Test results from this visit will be discussed in further detail at your follow- up appointment, if applicable. Discharge Plan Admission Admit Date/Time: 12/29/23 13:50 Primary Reason for Your Visit: community acquired pneumonia, new onset afib Attending Provider: Clare Noble Primary Care Provider: Ra Knight Instructions Patient Instructions: AFib Dc Additional Instructions / Restrictions: use oxygen for shortness of breath as needed. Discharge Orders/Prescriptions Prescriptions: New metoprolol tartrate 50 mg Tablet 50 mg PO BID Qty: 60 2RF doxycycline hyclate 100 mg tablet 100 mg PO BID Qty: 10 0RF Eliquis 2.5 mg tablet 2.5 mg PO BID Qty: 60 2RF Continued albuterol sulfate 2.5 mg /3 mL (0.083 %) solution for nebulization 2.5 mg inhalation Q6H PRN (Reason: wheezing/ sob) biotin 800 mcg tablet 800 mcg PO DAILY lorazepam 0.5 mg tablet 0.5 mg PO QHS PRN (Reason: Anxiety) omega 8-rvk-yqf-fish oil 300 mg-100 mg- 150 mg-1,000 mg capsule 1 cap PO DAILY fluticasone propionate 50 mcg/actuation spray,suspension 2 spray intranasal DAILY PRN (Reason: nasal congestion) Rx Instructions: administer into each nostril pravastatin 40 mg tablet 40 mg PO QHS meclizine 25 mg tablet 25 mg PO BID-QID PRN (Reason: dizziness) gabapentin 100 mg capsule 200 mg PO BID cholecalciferol (vitamin D3) 250 mcg (10,000 unit) capsule 250 mcg PO DAILY losartan 50 mg tablet 50 mg PO DAILY Qty: 90 3RF fluticasone propion-salmeterol [Advair HFA] 115-21 mcg/actuation HFA aerosol inhaler 2 puff INHALATION BID Discontinued amlodipine 5 mg Tablet 5 mg PO DAILY Other Ambulatory Orders: 30 Day Event Recorder Preventi (Urgent) Timeframe: 1 Day Facility: [facility] - Location: Cardiovascular Services Ordered By: Dr. Clare Noble Referrals / Follow Up: Ra Knight MD [Primary Care Provider] - Within 2 Weeks Disposition Disposition (needs filled in before D/C Order can be placed): Home Health Service
--- NOTE | 2024-01-01 16:23 | PN_ITS ---
Subjective Subjective Patient seen and examined. She had no complaints and felt better. She did develop atrial flutter overnight. She has remained in sinus rhythm since then. She was started on p.o. metoprolol 50 mg twice daily. She is on 2 L of oxygen now. Review systems otherwise negative. She has otherwise remained hemodynamically stable. Objective Data Objective Data Vital Signs: Vital Signs Temp Pulse Resp BP Pulse Ox O2 Del Method O2 Flow Rate 98 F 72 16 142/72 H 97 Nasal Cannula 2 01/01/24 15:24 01/01/24 15:24 01/01/24 15:24 01/01/24 15:24 01/01/24 15:24 01/01/24 15:24 01/01/24 15:24 Oxygen Flow Rate (L/min) [ 2 AMBULATING with Oxygen #1] Oxygen Flow Rate (L/min) [At 2 REST with Oxygen] Oxygen Flow Rate (L/min) 2 Oxygen Delivery Method Nasal Cannula Weight: 227 lb 15.998 oz Body Mass Index (BMI) 34.7 Intake & Output: Intake and Output for Last 24 Hours 12/30/23 12/31/23 01/01/24 23:59 23:59 23:59 Intake Total 305 / 305 785 / 785 Balance 305 / 305 785 / 785 Lab / Micro Data 01/01/24 06:20 01/01/24 06:20 Labs: Laboratory Results - last 24 hr 01/01/24 06:20: WBC 11.8 H, RBC 3.55 L, Hgb 10.0 L, Hct 32.6 L, MCV 91.8, MCH 28.2, MCHC 30.7 L, RDW Std Deviation 45.3 H, RDW Coeff of Carlos 13.3, Plt Count 208, MPV 10.8, Immature Gran % (Auto) 1.700 H, Neut % (Auto) 89.9 H, Lymph % (Auto) 4.1 L, [place] % (Auto) 4.2, Eos % (Auto) 0.0, Baso % (Auto) 0.1, Absolute Neuts (auto) 10.6 H, Absolute Lymphs (auto) 0.49 L, Nucleated RBC % 0, Sodium 141, Potassium 4.7, Chloride 109 H, Carbon Dioxide 29.0, Anion Gap 3 L, BUN 29 H , Creatinine 1.05 H, Estim Creat Clear Calc 48.39, Est GFR (MDRD) Af Amer 64, E st GFR (MDRD) Non-Af 53 L, BUN/Creatinine Ratio 27.6 H, Glucose 137 H, Calcium 8.7 Micro: Microbiology 12/29/23 16:10 Sputum, Expectorated/Coughed Gram Stain - Final 12/29/23 16:10 Sputum, Expectorated/Coughed Respiratory Culture - Preliminary Yeast Like Organism 12/29/23 12:32 Urine, Clean Catch Urine Culture - Final Mixed Gram Pos & Gram Neg Org 12/29/23 17:33 Mucosa - Nasopharyngeal Respiratory Panel (PCR) - Final 12/29/23 18:10 Urine, Clean Catch Legionella Antigen - Final 12/29/23 18:10 Urine, Clean Catch Streptococcus pneumoniae Antigen (M - Final 12/29/23 11:34 Mucosa - Nose SARS-CoV-2, Influenza & RSV (PCR) - Final Radiography Diagnostic Testing: Radiology Impression Echocardiogram 01/01/24 11:39 Interpretation Summary The estimated ejection fraction is 65 %. Unable to assess diastolic dysfunction. Mild (1+) mitral valve insufficiency. Ordering Physician: Clare Noble Referring Physician: Ra Knight Performed By: Jann PETERSON RDCS, Katerina and Student Physical Exam Const alert, oriented x3 and no apparent distress General Appearance: cooperative and well developed HEENT normocephalic, head/scalp atraumatic, moist oral mucous membranes and oropharynx normal Eyes PERRL and EOMs intact bilaterally Neck no lymphadenopathy and supple Resp Resp Narrative: diminished breath sounds bibasally, few crackles and mild wheezing. On 2L of oxygen by nasal canula Cardio regular rate, regular rhythm, S1 normal heart sound, S2 normal heart sound and no murmurs GI normal to inspection, nondistended, normoactive bowel sounds, soft to palpation, non-tender and non-distended Extremity normal capillary refill, no clubbing, cyanosis or edema and no calf tenderness General Extremity: no tenderness to palpation of joints or extremities Skin General Skin Exam: no breakdown Neuro CN's II-XII intact bilaterally, no focal motor deficits, no sensory deficits noted and deep tendon reflexes 2+ bilaterally Motor Exam: strength 5/5 throughout and general weakness Psych thought process normal, cooperative and affect normal Appearance: appropriate Assessment & Plan Assessment/Plan (1) Acute hypoxic respiratory failure: (2) Postobstructive pneumonia: PLAN: Plan #Hypoxia due to right post obstructive pneumonia * remains on 2L of oxygen * on IV ceftriaxone and azithromycin * breathing treatment with bronchodilators * urine for strep and legionella negative. Sputum culture growing mixed normal respiratory pj * titrate oxygen to maintain sats >90% * #History of right squamous cell lung cancer * s/ radiation and chemotherapy * CT chest showed no PE and showed a 1.8 x 1 6 cm right perihilar mass with postobstructive Co. sedation the right upper lobe and mild mediastinal lymphadenopathy and patchy airspace disease in the left lung as well as small right pleural effusion * to follow up with oncology on outpatient basis * #new onset atrial flutter * Patient went into new onset atrial flutter overnight. She has remained in normal sinus rhythm since * TSH pending * 2D echo showed EF of 65% with pulmonary artery systolic pressure of 35mmhg. * started on PO metoprolol 50mg bid * start on eliquis 2.5mg bid. * will dc on 30 day event monitor as well * potassium was WNL * #Hypertension: on amlodipine and losartan #Hyperlipidemia: on statin DVT prophylaxis: lovenox CODE STATUS: DNRCCA no intubation Disposition: Plan was for patient to be discharged home today but states he is not comfortable with her going home today and wanted to have 1 more day of steroids and antibiotics. Plan is to discharge tomorrow. Charges/Coding Visit Charges Inpatient E&M: 53309 Subs Hosp L2
[2024-01-01 16:40] LABS: Thyroid Stim Hormone (TSH) 0.14 uIU/mL (0.358-3.74)
[2024-01-01] MEDS: MELATONIN 10 MG TABLET 20 MG PO (21:34)
[2024-01-01] MEDS: APIXABAN 2.5 MG TABLET (WCH) PO (21:34)
[2024-01-01] MEDS: Pravastatin 40 MG Tablet PO (21:34)
[2024-01-02] VITALS (7 sets, daily range): BP systolic 147–164; BP diastolic 68–81; PULSE 64–73; RESP 18; TEMP 36.6–36.8; O2SAT 92–97
[2024-01-02] MEDS: 0.9% Saline Lock 10 ML Syringe IV (05:53)
[2024-01-02] MEDS: Albuterol 2.5 MG/3 ML VIAL.NEB. INHALATION (07:24)
[2024-01-02 07:34] LABS: Hematocrit 32.7 % (37-47); Hemoglobin 10.3 g/dL (12.0-15.0); Mean Corp Hgb Conc 31.5 g/dL (32-36); Mean Corpuscular Hgb 28.5 pg (27.0-32.0); Mean Corpuscular Volume 90.3 fL (81-99); Mean Platelet Vol. 10.7 fl (6.2-12.0); POSITIVE COUNT YES; POSITIVE DIFFERENTIAL YES; POSITIVE MORPHOLOGY YES; Platelet Count 196 K/mm3 (150-450); RBC Distribution Width CV 13.1 % (11.6-14.6); RBC Distribution Width SD 43.4 fl (35.1-43.9); Red Blood Count 3.62 M/mm3 (4.2-5.4); White Blood Count 10.6 K/mm3 (4.4-11.0)
[2024-01-02 08:49] LABS: Anion Gap 2 (5-15); BUN 28 mg/dL (7-18); BUN/Creat Ratio 33.4 RATIO (10-20); Calcium,Total 9.3 mg/dL (8.5-10.1); Chloride 109 mmol/L (98-107); Creatinine, Serum 0.84 mg/dL (0.55-1.02); EST Glomerular Filtration Rate 69 mL/min (>60); Est Glom Filt Rate - Afr Amer 83 mL/min (>60); Estimated Creatinine Clearance 60.49 ml/min; Glucose 131 mg/dL (74-106); Potassium 4.6 mmol/L (3.5-5.1); Sodium Level 141 mmol/L (136-145)
[2024-01-02] MEDS: Ceftriaxone 1 GM/50 ML BAG IV (08:59)
[2024-01-02 09:12] LABS: Differential Indicated MANUAL DIFF
[2024-01-02] MEDS: Cholecalciferol (Vit D3) 125 MCG CAPSULE (5,000 UNITS) 250 MCG PO (09:13)
[2024-01-02] MEDS: Metoprolol Tartrate 50 MG Tablet PO (09:13)
[2024-01-02] MEDS: guaiFENesin 600 MG Tablet PO (09:13)
[2024-01-02] MEDS: Losartan Potassium 50 MG Tablet PO (09:14)
[2024-01-02] MEDS: amLODIPine 5 MG Tablet PO (09:14)
[2024-01-02] MEDS: APIXABAN 2.5 MG TABLET (WCH) PO (09:18)
[2024-01-02] MEDS: Gabapentin 100 MG Capsule 200 MG PO (09:18)
[2024-01-02] MEDS: Azithromycin 500 MG in Dextrose 5%-Water (250mL Bag) 250 ML 250 MG IV (09:21)
--- NOTE | 2024-01-02 09:45 | DS.PCM_ITS ---
Providers Date of Admission: 12/29/23 Date of Discharge: 01/02/24 Primary Care Physician: Dr. Ra Knight MD Reason For Visit: HYPOXIA, POST OBSTRUCTIVE PNEUMONIA Diagnosis Discharge Diagnosis (1) Acute hypoxic respiratory failure: Status: Acute Code(s): J96.01 - Acute respiratory failure with hypoxia (2) Postobstructive pneumonia: Status: Acute Code(s): J18.9 - Pneumonia, unspecified organism Plan #Hypoxia due to right post obstructive pneumonia * remains on 2L of oxygen * on IV ceftriaxone and azithromycin * breathing treatment with bronchodilators * urine for strep and legionella negative. Sputum culture growing mixed normal respiratory pj * titrate oxygen to maintain sats >90% * #History of right squamous cell lung cancer * s/ radiation and chemotherapy * CT chest showed no PE and showed a 1.8 x 1 6 cm right perihilar mass with postobstructive Co. sedation the right upper lobe and mild mediastinal lymphadenopathy and patchy airspace disease in the left lung as well as small right pleural effusion * to follow up with oncology on outpatient basis * #new onset atrial flutter * Patient went into new onset atrial flutter overnight. She has remained in normal sinus rhythm since * TSH pending * 2D echo showed EF of 65% with pulmonary artery systolic pressure of 35mmhg. * started on PO metoprolol 50mg bid * start on eliquis 2.5mg bid. * will dc on 30 day event monitor as well * potassium was WNL * #Hypertension: on amlodipine and losartan #Hyperlipidemia: on statin DVT prophylaxis: lovenox CODE STATUS: DNRCCA no intubation Disposition: Plan was for patient to be discharged home today but states he is not comfortable with her going home today and wanted to have 1 more day of steroids and antibiotics. Plan is to discharge tomorrow. Medications at Discharge Home Medications albuterol sulfate 2.5 mg/3 mL (0.083 %) solution for nebulization 2.5 mg inhalation Q6H PRN wheezing/ sob 11/09/22 biotin 800 mcg tablet 800 mcg PO DAILY 11/09/22 fluticasone propionate 115 mcg-salmeterol 21 mcg/actuation HFA inhaler (Advair HFA) 2 puff inhalation BID 11/09/22 lorazepam 0.5 mg tablet 0.5 mg PO QHS PRN Anxiety 11/09/22 omega-3 300 mg-dha 100 mg-epa 150 mg-fish oil 1,000 mg capsule 1 cap PO DAILY 11/09/22 meclizine 25 mg tablet 25 mg PO BID-QID PRN dizziness 11/14/23 pravastatin 40 mg tablet 40 mg PO QHS 11/14/23 cholecalciferol (vitamin D3) 250 mcg (10,000 unit) capsule 250 mcg PO DAILY 12/11/23 fluticasone propionate 50 mcg/actuation nasal spray,suspension 2 spray intranasal DAILY PRN nasal congestion 12/11/23 gabapentin 100 mg capsule 200 mg PO BID 12/11/23 losartan 50 mg tablet 50 mg PO DAILY #90 tabs 12/11/23 apixaban 2.5 mg tablet (Eliquis) 2.5 mg PO BID #60 tabs 01/01/24 doxycycline hyclate 100 mg tablet 100 mg PO BID #10 tabs 01/01/24 metoprolol tartrate 50 mg tablet 50 mg PO BID #60 tabs 01/01/24 Hospital Course Operations None Procedures 2-D Echocardiogram Summary of Care Provided Minutes Spent on Discharge: 45 Hospital Course: LIBIA ANTON, is a 88 F with a PMH as outlined who presents via the ED on 12/29/2023 with a complaint of shortness of breath, fever and hypoxia for about 3 days prior to admission. She has a history of lung cancer and is s/p radiation. She had a cough productive of yellowish sputum, with associated weakness and generalised muscle weakness. She denies fever or chills. Review of systems is otherwise negative. She does not wear oxygen at home. Vitals in the ED were BP of 131/46, PA of 81, RR of 20 and oxygen sats of 94% on 2L of oxygen. Temp was 98.6F. CBC showed hemoglobin of 10 with WBC of 8.1 and platelets of 146. INR is 1.2. Chemistry shows sodium of 139 with potassium of 4.2 and bicarb of 28. Cr is 1.03. Urinalysis showed rare bacteria and WBC of 5- 10 per high-power field. CTA chest showed no PE and no evidence of dissection and showed a 1.8 x 1.6 cm right perihilar mass with postobstructive consolidation in the right upper lobe and mild mediastinal lymphadenopathy likely representing the patient's known neoplasm and patchy airspace opacity in the left lung which is likely infectious in nature as well as a small right pleural effusion. She was admitted and managed for hypoxia due to postobstructive pneumonia. She was started on IV Levaquin. She was also placed on breathing treatments with bronchodilators. Hospital course was complicated by development of atypical atrial flutter. She had 2D echo which showed EF of 65% and unable to assess diastolic dysfunction and mild 1+ mitral valve insufficiency. She was started on p.o. Eliquis as well as p.o. metoprolol 50 mg twice daily. Shortness of breath improved and she felt much better. She was discharged on 01/02/2024. She qualified for 2 L of oxygen per walking pulse ox. Of note, patient admitted to a history of falls at home. I counseled her about the risk of bleeding because on the Eliquis. 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 Patient counseled that if she had any fall again, she was to call her PCP to discuss about stopping the Eliquis. She was discharged with a 30-day event monitor which to be sent to [facility] for interpretation and be sent to her PCP. Patient seen and examined prior to discharge. She had no complaints and felt well. Review of symptoms otherwise negative. Labs and vitals reviewed. Medication reviewed and reconciled. She was discharged with a prescription for p.o. doxycycline 100 mg twice daily for 5 days and was also given a prescription for p.o. metoprolol 50 mg twice daily and Eliquis 2.5 mg twice daily. Physical Exam Const alert, oriented x3 and no apparent distress General Appearance: cooperative, comfortable, well kempt and well developed Orientation / Consciousness: awake HEENT normocephalic, head/scalp atraumatic, hearing grossly normal bilaterally, moist oral mucous membranes and oropharynx normal Mouth: oral and palatal mucosa normal Eyes PERRL and EOMs intact bilaterally Neck no lymphadenopathy and supple Resp Resp Narrative: diminished breath sounds bibasally, few crackles and mild wheezing. On 2L of oxygen by nasal canula Cardio regular rate, regular rhythm, S1 normal heart sound, S2 normal heart sound and no murmurs GI normal to inspection, nondistended, normoactive bowel sounds, soft to palpation, non-tender and non-distended Extremity normal to inspection, full ROM, normal capillary refill, no clubbing, cyanosis or edema and no calf tenderness General Extremity: no tenderness to palpation of joints or extremities Skin no rashes or lesions noted and no wounds General Skin Exam: no breakdown Neuro oriented x3, CN's II-XII intact bilaterally, moves all extremities, no focal motor deficits, no sensory deficits noted and deep tendon reflexes 2+ bilaterally Sensorium / Orientation: awake and alert Motor Exam: strength 5/5 throughout and general weakness Psych thought process normal, cooperative and affect normal Appearance: appropriate Weight / BMI Weight Weight: 227 lb 15.998 oz Body Mass Index (BMI) 34.7 ABG / Lab / Microbiology Data 01/02/24 07:00 01/02/24 07:00 Laboratory: Laboratory Results - last 24 hr 01/01/24 06:20: TSH 0.14 L 01/02/24 07:00: WBC 10.6, RBC 3.62 L, Hgb 10.3 L, Hct 32.7 L, MCV 90.3, MCH 28.5, MCHC 31.5 L, RDW Std Deviation 43.4, RDW Coeff of Carlos 13.1, Plt Count 196, MPV 10.7, Neut % (Auto) Not Reportable, Sodium 141, Potassium 4.6, Chloride 109 H, Carbon Dioxide 30.0, Anion Gap 2 L, BUN 28 H, Creatinine 0.84, Estim Creat Clear Calc 60.49, Est GFR (MDRD) Af Amer 83, Est GFR (MDRD) Non-Af 69, B UN/Creatinine Ratio 33.4 H, Glucose 131 H, Calcium 9.3 Microbiology: Microbiology 12/29/23 16:10 Sputum, Expectorated/Coughed Gram Stain - Final 12/29/23 16:10 Sputum, Expectorated/Coughed Respiratory Culture - Preliminary Yeast Like Organism 12/29/23 12:32 Urine, Clean Catch Urine Culture - Final Mixed Gram Pos & Gram Neg Org 12/29/23 17:33 Mucosa - Nasopharyngeal Respiratory Panel (PCR) - Final 12/29/23 18:10 Urine, Clean Catch Legionella Antigen - Final 12/29/23 18:10 Urine, Clean Catch Streptococcus pneumoniae Antigen (M - Final 12/29/23 11:34 Mucosa - Nose SARS-CoV-2, Influenza & RSV (PCR) - Final Radiography Diagnostic Testing: Radiology Impression Echocardiogram 01/01/24 11:39 Interpretation Summary The estimated ejection fraction is 65 %. Unable to assess diastolic dysfunction. Mild (1+) mitral valve insufficiency. Ordering Physician: Clare Noble Referring Physician: Ra Knight Performed By: Jann PETERSON RDCS, Katerina and Student D/C Instructions Discharge Diet: Low fat / Low cholesterol Discharge Activity: Return to Normal Activity Weight Bearing Status: Weight bearing as tolerated Call your doctor if you observe: Fever of 101 or Higher, Shortness of breath, Dizziness, Swelling in the ankles, Chest pain and Increased palpitations (irregular heartbeat) Meaningful Use Info Meaningful Use Meaningful Use Diagnoses (Choose all that apply): None applicable Ischemic Stroke Statin Dosing Therapy Reference: STATIN DOSE THERAPY REFERENCE: * Patients > 75 years receive moderate or high dose statin therapy. * Patients 75 years or YOUNGER should receive HIGH intensity statin dose unless contraindicated. You will be required to document reason for non-treatment if statin daily dose does not meet guidelines. HIGH DOSE STATIN THERAPY DAILY Atorvastatin > than or = to 40 mg Rosuvastatin > than or = to 20 mg Amlodipine + Atorvastatin > than or = to 2.5/40 mg Ezetimibe + Simvastatin 10/80 mg Simvastatin 80mg Discharge Plan Admission Admit Date/Time: 12/29/23 13:50 Primary Reason for Your Visit: community acquired pneumonia, new onset afib Attending Provider: Clare Noble Primary Care Provider: Ra Knight Instructions Patient Instructions: AFib Dc Additional Instructions / Restrictions: use oxygen for shortness of breath as needed. Discharge Orders/Prescriptions Prescriptions: New metoprolol tartrate 50 mg Tablet 50 mg PO BID Qty: 60 2RF doxycycline hyclate 100 mg tablet 100 mg PO BID Qty: 10 0RF Eliquis 2.5 mg tablet 2.5 mg PO BID Qty: 60 2RF Continued albuterol sulfate 2.5 mg /3 mL (0.083 %) solution for nebulization 2.5 mg inhalation Q6H PRN (Reason: wheezing/ sob) biotin 800 mcg tablet 800 mcg PO DAILY lorazepam 0.5 mg tablet 0.5 mg PO QHS PRN (Reason: Anxiety) omega 8-zxw-ewr-fish oil 300 mg-100 mg- 150 mg-1,000 mg capsule 1 cap PO DAILY fluticasone propionate 50 mcg/actuation spray,suspension 2 spray intranasal DAILY PRN (Reason: nasal congestion) Rx Instructions: administer into each nostril pravastatin 40 mg tablet 40 mg PO QHS meclizine 25 mg tablet 25 mg PO BID-QID PRN (Reason: dizziness) gabapentin 100 mg capsule 200 mg PO BID cholecalciferol (vitamin D3) 250 mcg (10,000 unit) capsule 250 mcg PO DAILY losartan 50 mg tablet 50 mg PO DAILY Qty: 90 3RF fluticasone propion-salmeterol [Advair HFA] 115-21 mcg/actuation HFA aerosol inhaler 2 puff INHALATION BID Discontinued amlodipine 5 mg Tablet 5 mg PO DAILY Other Ambulatory Orders: 30 Day Event Recorder Preventi (Urgent) Timeframe: 1 Day Facility: [facility] - Location: Cardiovascular Services Ordered By: Dr. Clare Noble Referrals / Follow Up: Ra Knight MD [Primary Care Provider] - Within 2 Weeks Disposition Disposition (needs filled in before D/C Order can be placed): Home Health Service Charges/Coding Visit Charges Inpatient E&M: 22967 Disch Hosp >30min
--- NOTE | 2024-01-02 10:54 | CASEMGMT ---
Social Work- Pt confirms she has completed a living will and health care POA naming Ladarius, .? Pt notified that documents are not on file at [facility] and SW requested they be brought in for scanning into the EMR.? MARIA Obando
[2024-01-02 11:39] LABS: Lymphocyte 8 % (19-41); Metamyelocyte 5 % (0-1); Monocyte 3 % (0-10); Neutrophil-Segmented 84 % (47-70); Total Cells Counted 100 (MANUAL DIFF)
[2024-01-02 11:41] LABS: Platelet Estimate ADEQUATE (ADEQ)
[2024-01-02 11:47] LABS: Red Cell Morphology NORM C+C NORMAL (NORM C&C)
[2024-01-02 11:48] LABS: Absolute Neutrophil Count 8.9 X10^3/uL (2.0-7.7)
[2024-01-02 11:49] LABS: Absolute Lymphocyte Count 0.85 X10^3/uL (0.83-4.51)
--- NOTE | 2024-01-02 11:52 | CASEMGMT ---
Addendum entered by Magdalena Ash 01/02/24 12:16: TC to [place] at [facility], she is aware plan is for pt to dc today. Original Note: Pt to be dc'd on eliquis, tc to [facility] Jessy x3, unable to reach person to check cost. RN CM into pt room, pt sitting up in chair. Pt is aware that this RN CM could not reach [facility] to check her cost of eliquis. Provided pt with savings card and explanation. Pt states she received a text that her meds are ready. Pt verbalizes understanding of the card. Pt is aware that she does not qualify for home oxygen. She is also aware that [facility] will be in touch with her to see her in the home. Pt denies any further homegoing needs at this time.
[2024-01-03 10:58] LABS: Pathologist Review Reviewed
== END 2024-01-02 13:14 | disposition home health service (06) | DRG 194 ==
LOC: ED 13:16 → PCU 13:36 → MS3 14:12
PROVIDERS: Admitting Provider Student in an Organized Health Care Education/Training Program; Emergency Provider Emergency Medicine; PCP Internal Medicine; Visit Provider Student in an Organized Health Care Education/Training Program
DX: J18.9 Pneumonia, unspecified organism (principal); C34.11 Malignant neoplasm of upper lobe, right bronchus or lung; I48.92 Unspecified atrial flutter; J44.0 Chronic obstructive pulmonary disease with (acute) lower respiratory infection; N18.30 Chronic kidney disease, stage 3 unspecified; I12.9 Hypertensive chronic kidney disease with stage 1 through stage 4 chronic kidney disease, or unspecified chronic kidney disease; E78.00 Pure hypercholesterolemia, unspecified; R29.6 Repeated falls; Z66 Do not resuscitate; Z79.51 Long term (current) use of inhaled steroids; Z79.899 Other long term (current) drug therapy; Z87.891 Personal history of nicotine dependence
CPT/HCPCS: 36415; 71045; 71275; 80048; 80053; 81001; 83605; 84443; 84484; 85025; 85610; 85730; 87040; 87070; 87086; 87088; 87205; 87449; 87631; 87633; 93005; 93306; 94640; 94668; 94762; 97116; 97162; 97166; 97530; 97535; 97802; 99285; J7030; Q9967; A4216; J2405

== ENCOUNTER → 2024-05-16 | Outpatient (CLI) | payer MEDICARE, SELFPAY ==
[2024-05-16 10:56] LABS: Absolute Lymphocyte Count 0.93 X10^3/uL (0.83-4.51); Absolute Neutrophil Count 3.2 X10^3/uL (2.0-7.7); Basophil# 0.04 X10^3/uL; Basophil% 0.8 % (0-1); Eosinophils% 4.1 % (0-5); Hematocrit 30.2 % (37-47); Hemoglobin 9.1 g/dL (12.0-15.0); Lymphocyte # 0.93 X10^3/ul (0.83-4.51); Lymphocyte % 18.9 % (19-41); Mean Corp Hgb Conc 30.1 g/dL (32-36); Mean Corpuscular Hgb 27.3 pg (27.0-32.0); Mean Corpuscular Volume 90.7 fL (81-99); Monocyte# 0.49 X10^3/uL; NRBC Flagged by Analyzer 0 % (0-5); Neutrophil # 3.23 X10^3/uL (2.7-7.7); Neutrophil % 65.8 % (47-70); Platelet Count 168 K/mm3 (150-450); RBC Distribution Width SD 46.1 fl (35.1-43.9); Red Blood Count 3.33 M/mm3 (4.2-5.4); White Blood Count 4.9 K/mm3 (4.4-11.0)
[2024-05-16 11:41] LABS: ALB/GLOB Ratio 1.1 RATIO (0.9-2.4); AST(SGOT) 11 U/L (15-37); Alanine Aminotransfer ALT/SGPT 12 U/L (13-56); Albumin, Serum 3.3 g/dL (3.2-5.0); Alkaline Phosphatase 71 U/L (45-117); Anion Gap 3 (5-15); BUN 15 mg/dL (7-18); BUN/Creat Ratio 13.5 RATIO (10-20); Chloride 109 mmol/L (98-107); Creatinine, Serum 1.11 mg/dL (0.55-1.02); EST Glomerular Filtration Rate 50 mL/min (>60); Est Glom Filt Rate - Afr Amer 60 mL/min (>60); Globulin 3.1 g/dL (2.2-4.2); Glucose 101 mg/dL (74-106); Potassium 4.6 mmol/L (3.5-5.1); Protein, Total 6.4 g/dL (6.4-8.2); Sodium Level 142 mmol/L (136-145)
[2024-05-18 17:26] LABS: BNP,B-Type NATRIURETIC PEPTIDE 134.8 pg/mL (0-100)
== END | disposition home or self-care (01) ==
LOC: LAB 09:40
PROVIDERS: PCP Internal Medicine; Referring Provider Nurse Practitioner Family; Visit Provider Nurse Practitioner Family
DX: R06.09 Other forms of dyspnea (principal); N18.30 Chronic kidney disease, stage 3 unspecified; I12.9 Hypertensive chronic kidney disease with stage 1 through stage 4 chronic kidney disease, or unspecified chronic kidney disease; E78.5 Hyperlipidemia, unspecified
CPT/HCPCS: 36415; 80053; 83880; 85025